=== PATIENT | female | born 1955 ===

== ENCOUNTER 2025-01-26 06:19 | Day surgery (SDC) | payer OTHER, SELFPAY ==
[2025-01-26] VITALS (10 sets, daily range): BP systolic 113–158; BP diastolic 49–62; BMI 45.2
[2025-01-26 12:56] LABS: Glucose - Point of Care 140 mg/dl (70-99)
[2025-01-26] MEDS: TYLENOL 1000 MG PO (13:02)
[2025-01-26] MEDS: CELEBREX 200 MG PO (13:02)
[2025-01-26] MEDS: NORMOSOL-R/PLASMALYTE-A 1000 IV ×2 (13:03→20:57)
[2025-01-26 15:08] LABS: Glucose - Point of Care 115 mg/dl (70-99)
[2025-01-26 18:54] LABS: Glucose - Point of Care 117 mg/dl (70-99)
--- NOTE | 2025-01-26 19:46 | W.PN.SURGUPD ---
Surgical Update
Surgical Update
69 yo F s/p R charcot midfoot dislocation repair with external fixator application
-WB for transfer to E
-Dressings to remain C/D/I, please reinforce as needed
-Vancomycin for antibiotics for 24 hours
-Anticipate DC to SNF
-PT/OT
--- NOTE | 2025-01-26 20:21 | HPS.HSE ---
Family Physician
-
Family Physician: GRETA Plascencia
Chief Complaint
-
Sharp, foot right ankle with contracture right ankle
History of Present Illness
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
asked by podiatry to evaluate the patient for her ongoing medical needs. Patient is awake alert oriented. She denies any pain in her right lower extremity however she did receive a nerve block. She was educated on pain control when the nerve
block starts to wear off. She denies headache, chest pain, palpitations, cough, shortness of breath, abdominal pain, nausea, vomiting, diarrhea, urinary symptoms. She does live alone has a powder room on the first floor and can sleep there. I did
make her aware we were consulting case management for SNF rehab placement that she was amicable to. She states her daughter Muna is her emergency contact however she lives in [place] so she listed her friend Alvina
She has a past medical history DM2, HTN, HLD, Charcot foot with neuropathy of the right, contracture right ankle, dislocation midtarsal joint of the right foot status post repair today 01/26/2025 class III obesity
Medical History
Past Medical History
Past Medical History: Reports Other
Additional Past Medical History:
DM2
HTN
HLD
Charcot foot with neuropathy of the right
contracture right ankle
dislocation midtarsal joint of the right foot status post repair today 01/26/2025
class III obesity
Past Surgical History: Reports Other
Additional Past Surgical History:
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
Charcot foot with neuropathy of the right, contracture right ankle, dislocation midtarsal joint of the right foot status post repair today 01/26/2025
Social History
Tobacco: Non-smoker
Alcohol: None
Drug: None
Family History
Family History: Diabetes and Hypertension
Allergies / Home Medications
Allergies reflects when Allergies were last updated in [facility].
Home Medications with original date entered in [facility]
Allergy/Medication List:
Allergies
Allergy/AdvReac Type Severity Reaction Status Date / Time
levofloxacin [From Levaquin] Allergy Unknown Verified 01/26/25 12:49
Penicillins Allergy Hives Verified 01/26/25 12:49
Home Medications
aflibercept 2 mg/0.05 mL intravitreal syringe (Eylea) 2 mg intravitreal DIRECTED 01/20/25
amlodipine 10 mg tablet 10 mg PO HS 01/20/25
aspirin 81 mg tablet,delayed release 81 mg PO DAILY 01/20/25
biotin 5,000 mcg chewable tablet 5,000 mcg PO DAILY 01/20/25
calcium 600 mg (as carbonate)-vit D3 20 mcg (800 unit) chewable tablet (Caltrate plus D) 1 tab PO DAILY 01/20/25
cholecalciferol (vitamin D3) 50 mcg (2,000 unit) capsule (Vitamin D3) 50 mcg PO DAILY 01/20/25
cyanocobalamin (vitamin B-12) 1,000 mcg tablet 1,000 mcg PO DAILY 01/20/25
cyanocobalamin (vitamin B-12) 3,000 mcg capsule 3,000 mcg PO DAILY 01/20/25
hydrochlorothiazide 25 mg tablet 25 mg PO DAILY 01/20/25
insulin aspart U-100 100 unit/mL (3 mL) subcutaneous pen (Novolog FlexPen U-100 Insulin aspart) 12 - 16 unit SC AC 01/20/25
insulin degludec 200 unit/mL (3 mL) subcutaneous pen (Tresiba FlexTouch U-200 insulin) 40 unit SC HS 01/20/25
latanoprost 0.005 % eye drops 1 drp ophthalmic (eye) HS 01/20/25
losartan 100 mg-hydrochlorothiazide 12.5 mg tablet 1 tab PO DAILY 01/20/25
metoprolol succinate 25 mg tablet,extended release 24 hr 25 mg PO HS 01/20/25
multivitamin with minerals-folic acid 0.4 mg tablet (One-A-Day Women's 50 Plus) 1 tab PO DAILY 01/20/25
simvastatin 10 mg tablet 10 mg PO HS 01/20/25
solifenacin 5 mg tablet 5 mg PO HS 01/20/25
sour wilson extract 1,000 mg capsule (Tart Wilson Extract) 2,000 mg PO DAILY 01/20/25
tirzepatide 7.5 mg/0.5 mL subcutaneous pen injector (Mounjaro) 7.5 mg SC QWEEK 01/20/25
Review of Systems
-
History Source: Patient and Other (Nurse at bedside)
A 12 point ROS was completed and negative except as noted: Yes
Constitutional: Denies Fever or Chills
EENT: Denies Sore Throat or Runny Nose
Respiratory: Denies Cough or Trouble Breathing
Cardiac: Denies Chest Pain, Diaphoresis or Palpitations
Abdomen/GI: Denies Abdominal Pain, Nausea, Vomiting, Diarrhea, Constipated or Bloody Stools
: Denies Dysuria or Frequency
Musculoskeletal: Reports Other (External fixator applied to right lower extremity skin is pink and warm patient had nerve block has no current sensation); Denies Joint Pain
Skin: Denies Itching or Rash
Neurological: Denies Dizzy or Headache
Endocrine: Reports No Symptoms
Hematologic/Lymphatic: Reports No Symptoms
Psych: Reports Calm
Physical Exam
Vital Signs
Vital Signs
Temp Pulse Resp BP Pulse Ox
97.1 F 64 11 113/49 96
01/26/25 19:46 01/26/25 20:15 01/26/25 20:15 01/26/25 20:15 01/26/25 20:15
Physical Exam
General: Comfortable, Conversant and Morbidly Obese; No Pain or Fever
HEENT: NormoCephalic, Anicteric, Mulberry Conjunctivae, No Ptosis and Other (Dry oral mucosa)
Respiratory: Clear; No Wheezes, Rales or Rhonchi
Cardiac: S1/S2 and Regular Rhythm; No Murmur, Rub, Gallop or Peripheral Edema
Breast: Deferred by me
GI: Soft, Non Tender, Non Distended, Normal Bowel Sounds and No Hepatosplenomegaly
Rectal: Deferred by Provider
Genito-urinary: Deferred by me
Musculoskeletal: No Clubbing, No Cyanosis, No Edema and Other (External fixator applied to right lower extremity skin is pink and warm patient had nerve block has no current sensation)
Skin: Warm and Dry; No Rash or Jaundice
Neuro: AO x 3, Nonfocal/grossly intact, Cranial Nerves Intact, No Sensory Deficits and Other (External fixator applied to right lower extremity skin is pink and warm patient had nerve block has no current sensation); No Slurred Speech, Facial Droop,
Tremors or Sedated
Psych: Calm
Impression/Plan
-
Impression/plan:
Observation MedSurg postop
#Charcot foot with neuropathy of the right, contracture right ankle, dislocation midtarsal joint of the right foot status post repair today 01/26/2025
#Status post right Charcot midfoot dislocation repair with external fixator application
- Weight-bear for transfer to E
- Dressings to remain clean dry and intact
-IV vancomycin x 24 hours
-Case management for SNF rehab placement
-Consult PT/OT
- Check BMP at 2300, CBC BMP in a.m.
#DM 2
Accu-Cheks with SSI recent HgbA1c 6.7 on 01/20/2025 at [facility] labs
- Patient on Tresiba 40 units SQ at bedtime
-NovoLog 12 to 16 units with meals
-Mounjaro 7.5 mg subcu weekly
#HTN
-All BP meds with hold parameters
-Continue metoprolol succinate 25 mg at bedtime
-Continue losartan
-Continue amlodipine 10 mg at bedtime
-Hold HCTZ
#HLD
-Continue simvastatin 10 mg at bedtime
#Overactive bladder
-Continue solifenacin 5 mg at bedtime
#B12 deficiency
Continue vitamin B12 supplement
#Vitamin D deficiency
-Continue vitamin D supplementation
#Continue latanoprost 1 drop eyes at bedtime
#Class III 3 obesity�BMI 45.2
[2025-01-26] MEDS: DILAUDID 0.5 MG IV (20:47)
--- NOTE | 2025-01-26 20:57 | W.PN.UPDATE ---
Update Note
Progress Note Update
Patient seen and congestion with GRETA. I agree to physician physical. I concur with assessment and plan listed otherwise.
Briefly, this is a six 9-year-old female with past medical history significant for insulin-dependent diabetes, hypertension, history of neuropathic Charcot foot in the right lower extremity status post scheduled external fixator repair today who we
have been requested by podiatry to admit patient for ongoing medical needs.
No acute intraoperative complications. Postoperatively she is well-appearing and in no acute distress. She denies any pain in the right lower extremity. Review of system was thoroughly unremarkable.
On evaluation no acute findings on physical exam. I agree with the [employer]GE[employer] note.
Blood pressure was 170/56 with pulse of 65 and temp of 97.1, satting 98% on room air.
Assessment and plan
1. Right Charcot foot neuropathy�postop day 0, status post scheduled external fixator repair
- admit to med/surg
- pain control
- advance diet a tolerated
- vancomycin x 24 hours
- WB for transfers
- PT
- CM
- appreciate podiatry
2. DM II - labs pending
- continue home insulin regimen with lantus 40 hs starting tomorrow
- insulin 12 tidac
- moderate dose sliding scale
- continue statin
3. HTN
- continue losartan/hctz and amlodipine
DVT PPX - lovenox sq
Code status - Full Code
[2025-01-26 21:32] LABS: ALT (SGPT) 13 U/L (0-35); AST (SGOT) 18 U/L (14-36); Albumin 3.9 g/dl (3.5-5.0); Alkaline Phosphatase 95 U/L (38-126); Blood Urea Nitrogen 28 mg/dl (7-17); Calcium 8.8 mg/dl (8.4-10.2); Carbon Dioxide 24 mmol/L (22-30); Chloride 103 mmol/L (98-107); Estimated Creatinine Clearance 91 ml/min; Glucose 180 mg/dl (70-99); Potassium 3.6 mmol/L (3.5-5.1); Sodium 138 mmol/L (135-145); Total Bilirubin 0.6 mg/dl (0.2-1.3); Total Protein 6.6 g/dl (6.3-8.2); eGFR > 60.00
[2025-01-26 22:01] LABS: Glucose - Point of Care 179 mg/dl (70-99)
--- NOTE | 2025-01-26 22:05 | PHA.VAN.IN ---
Assessment
- Assessment
Renal Function: Unknown baseline
Concomitant Antimicrobials: NONE
- Previous Dosing Experience
Previous Regimen: NONE
AUC Dosing Plan
- Dosing Variables
Dosing Weight (kg): 138.8
Dosing CrCl (ml/min): 91
Vd coefficient (L/kg): 0.5
- Empiric Dosing
Initial / Loading Dose: 2GM
Maintenance Regimen: 1500MG IV Q12H
Estimated AUC (mcg*h/mL): 573
Estimated Peak (mcg*h/mL): 35
Estimated Trough (mcg/ml): 15.1
Estimated Half Life (H): 8.7
Pharmacokinetics Vancomycin I
- -
Patient Age: 69
Patient Sex: Female
Vancomycin Day #: 1
Indication: Prophylaxis (Surg,Hiv,...) (CHARCOT FOOT)
Requesting Provider: FREDA
Pertinent Antimicrobial Allergies:
Allergies
Penicillins Allergy (Verified 01/26/25 12:49)
Hives
levofloxacin [From Levaquin] Allergy (Verified 01/26/25 12:49)
Unknown
Height / Weight:
Height 5 ft 9 in
Actual Weight 138.799 kg
Pertinent Past Medical History: DM
- Vital Signs / Lab Results
Temp Pulse Resp BP Pulse Ox
97.2 F 64 11 113/49 94
01/26/25 21:00 01/26/25 21:00 01/26/25 21:00 01/26/25 21:00 01/26/25 21:00
Lab Results - Chemistry
01/26/25
21:02
BUN 28 H
Creatinine 0.9
Estimated Creat Clear 91
Albumin 3.9
[2025-01-26] MEDS: LANTUS 0.4 UNITS SC (22:09)
[2025-01-26] MEDS: VANCOCIN 540 MG IV (22:10)
[2025-01-26] MEDS: LIPITOR 10 MG PO (22:10)
[2025-01-26] MEDS: TOPROL XL 25 MG PO (22:10)
[2025-01-26] MEDS: VESICARE 5 MG PO (23:14)
[2025-01-26] MEDS: XALATAN OPHTHALMIC SOLUTION 1 DROP BOTH EYES (23:15)
[2025-01-27] VITALS (9 sets, daily range): BP systolic 105–147; BP diastolic 44–63; PULSE 70–72; O2SAT 97
[2025-01-27] MEDS: VANCOCIN 530 MG IV (06:09)
[2025-01-27 07:32] LABS: % Basophils 0.1 % (0-2); % Immature Granulocytes 0.5 % (0-0.5); % Lymphocytes 5.8 % (20.5-51.1); % Neutrophils 88.6 % (42.2-75.2); Absolute Immature Granulocytes 0.1 10^3/uL (0-0.05); Absolute Lymphocytes 0.7 10^3/uL (1.2-3.4); Absolute Monocytes 0.6 10^3/uL (0.1-0.6); Hematocrit 35.5 % (37.0-47.0); Mean Corp Hgb Conc. 33.8 g/dL (33.0-37.0); Mean Corpuscular Hgb 29.6 pg (27.0-31.0); Mean Corpuscular Volume 87.4 fL (81.0-99.0); Mean Platelet Volume 12.4 fL (7.4-10.4); Nucleated Red Blood Cells % 0 %; Platelet Count 155 10^3/uL (130-400); Red Blood Cell Count 4.06 10^6/uL (4.20-5.40); Red Cell Dist. Width 13.3 % (11.5-14.5); White Blood Cell Count 11.3 10^3/uL (4.8-10.8)
--- NOTE | 2025-01-27 07:32 | W.PN.SURGUPD ---
Surgical Update
Surgical Update
69 yo F s/p R charcot midfoot dislocation repair with external fixator application 01/26/2025
-Patient seen and evaluated at bedside. Dressings to remain C/D/I
-WB for transfer to [facility]
-Vancomycin for antibiotics for 24 hours
-Anticipate DC to SNF pending PT/OT evaluation
-At SNF, dressings can be changed 1x weekly per following instructions: Please apply xeroform to pin sites, gauze, eliseo wrap, SUZIE bandage to E external fixator
-To follow up at [facility] in 2 weeks
[2025-01-27 08:03] LABS: ALT (SGPT) 12 U/L (0-35); AST (SGOT) 18 U/L (14-36); Albumin 3.3 g/dl (3.5-5.0); Alkaline Phosphatase 90 U/L (38-126); Blood Urea Nitrogen 29 mg/dl (7-17); Calcium 8.7 mg/dl (8.4-10.2); Carbon Dioxide 27 mmol/L (22-30); Chloride 103 mmol/L (98-107); Estimated Creatinine Clearance 91 ml/min; Glucose 220 mg/dl (70-99); Potassium 3.6 mmol/L (3.5-5.1); Sodium 140 mmol/L (135-145); Total Bilirubin 0.5 mg/dl (0.2-1.3); eGFR > 60.00
[2025-01-27 08:33] LABS: Glucose - Point of Care 223 mg/dl (70-99)
--- NOTE | 2025-01-27 08:55 | CM ---
Addendum entered by Gloria Sung RN 01/28/25 09:04:
[facility]
Report
[phone]
fax
[phone]
Addendum entered by Gloria Sung RN 01/28/25 08:48:
[facility]BC Authorization
[id number]
NRD 02/02
Addendum entered by Gloria Sung RN 01/27/25 15:47:
Patient is agreeable to [facility] for discharge 01/28. Pending authorization.
PLAN: [facility] Pending auth.
Addendum entered by Gloria Sung RN 01/27/25 15:26:
CM updated patient that [facility] does not have any beds.
Patient is now interested in [facility]. Awaiting bed availability.
Addendum entered by Gloria Sung RN 01/27/25 15:22:
[facility] has no beds available at this time.
Addendum entered by Gloria Sung RN 01/27/25 15:15:
Patient is declining [facility], and [facility]. Patient requesting referral to be sent to [facility] in [place].
Addendum entered by Gloria Sung RN 01/27/25 14:55:
[facility]
have accepted patient.
Patient is unsure if she wants these facilities and is currently researching them. She expressed continued interest in [facility]. CM contacted [facility] admission coordinator to confirm if bed is available.
Addendum entered by Gloria Sung RN 01/27/25 13:20:
CM sent referrals to
[facility].
Addendum entered by Gloria Sung RN 01/27/25 13:18:
[facility] was able to accept but patient declined.
[facility] does not have any beds
[facility] is not able to accept due to patient's body habitus.
[facility] cannot accept due to patient's body habitus.
Addendum entered by Gloria Sung RN 01/27/25 11:12:
Patient has declined [facility]. CM offered bed at [facility]. Patient would like it if [facility] was considered. CM called admission coordinator at [facility].
Original Note:
CM met with patent. Patient is agreeable to SNF. Referrals sent to [facility], [facility], [facility] and [facility]. Awaiting acceptance.
[2025-01-27] MEDS: ASPIR LOW (ENTERIC COATED) 81 MG PO ×2 (09:07→19:56)
[2025-01-27] MEDS: NOVOLOG FLEXPEN-MODERATE RESISTANCE 3 UNITS SC ×3 (09:07→18:19)
[2025-01-27] MEDS: THERAGRAN 1 TABLET PO (09:08)
[2025-01-27] MEDS: VITAMIN B-12 3000 MCG PO (09:08)
[2025-01-27] MEDS: VITAMIN B-12 1000 MCG PO (09:08)
[2025-01-27] MEDS: OSCAL 500 + D 500 MG PO (09:09)
[2025-01-27] MEDS: VITAMIN D3 (cholecalciferol) 50 MCG PO (09:09)
[2025-01-27] MEDS: TYLENOL 1000 MG PO (12:10)
[2025-01-27] MEDS: NOVOLOG FLEXPEN 7 UNITS SC (12:12)
[2025-01-27 12:13] LABS: Glucose - Point of Care 230 mg/dl (70-99)
--- NOTE | 2025-01-27 12:17 | W.PN.HOSP.TC ---
Today's Communication/Plan
-
Stable for discharge to rehab, discussed with case management.
Assessment / Plan
Assessment / Plan
69-year-old female with right foot Charcot disease and contractions of the right ankle with dislocation in the midtarsal joint of the right foot hide external fixator repair on 01/18/2025.
CVS: S1-S2 normal
Chest: CTA B/L
Abdomen: Soft, NT / Bowel sounds present
Extremities: right leg on ext fixator.
HEALTH CARE COORDINATOR: Non focal exam
# Charcot foot with neuropathy and right ankle contracture with dislocation of the midtarsal joint of the right foot status post repair on 01/26/[address]
Management per podiatry
Weight-bear for transfers right lower extremity
Dressings to remain intact
Vancomycin for 24 hours per podiatry
PT OT
Needs Rehab
# Diabetes-with neuropathy
Hemoglobin A1c-
On Tresiba 40 units at night and NovoLog 12-16 AC as outpatient.
Continue Lantus 40 units and NovoLog 7 AC plus sliding scale coverage. Adjust NovoLog AC as needed
# Hypertension-continue amlodipine, hydrochlorothiazide, losartan, metoprolol
# Hyperlipidemia-continue statin
# Obesity with a BMI of 45-on Mounjaro 7.5 mg/week
# Bladder dysfunction-continue solifenacin
# B12 deficiency-continue B12 replacement
# History of second digit amputation left foot, first digit amputation left foot.
# Vitamin D deficiency-continue replacement
# Glaucoma-continue eye drops
# DVT prophylaxis-ASA 81 mg BID
# Full code
D/W . Will do aspirin 81 mg twice daily as prophylaxis
D/W Case management.
Anticipated Discharge: Today
Subjective/Interval History
-
Date of Service: January 27, 2025
Objective Data
-
Labs:
Laboratory Results
01/27/25
06:26
WBC 11.3 H
Hgb 12.0
Hct 35.5 L
Plt Count 155
Sodium 140
Potassium 3.6
Chloride 103
Carbon Dioxide 27
BUN 29 H
Creatinine 0.9
Glucose 220 H
Calcium 8.7
Total Bilirubin 0.5
AST 18
ALT 12
Alkaline Phosphatase 90
Vital Signs:
Vital Signs
Temp Pulse Resp BP Pulse Ox
97.4 F 68 18 147/63 98
01/27/25 07:15 01/27/25 07:15 01/27/25 07:15 01/27/25 07:15 01/27/25 09:03
I&O
01/26/25 01/27/25 01/28/25
06:59 06:59 06:59
Intake Total 1470 / 1470
Output Total 800 / 800
Balance 670 / 670
[2025-01-27 15:03] LABS: Glycohemoglobin (HgbA1c) 6.2 % (4.0-5.6)
[2025-01-27 16:59] LABS: Glucose - Point of Care 225 mg/dl (70-99)
--- NOTE | 2025-01-27 17:46 | W.PN.UPDATE ---
Update Note
Progress Note Update
Losartan hydrochlorothiazide added
Increase NovoLog to 10 AC
[2025-01-27] MEDS: COZAAR 100 MG PO (18:17)
[2025-01-27] MEDS: ORETIC 12.5 MG PO (18:17)
[2025-01-27] MEDS: NORMOSOL-R/PLASMALYTE-A IV (18:21)
[2025-01-27] MEDS: NOVOLOG FLEXPEN SC (18:21)
[2025-01-27] MEDS: NOVOLOG FLEXPEN 10 UNITS SC (18:42)
[2025-01-27] MEDS: ROXICODONE 5 MG PO (19:56)
[2025-01-27] MEDS: LANTUS 0.4 UNITS SC (21:38)
[2025-01-27] MEDS: LIPITOR 10 MG PO (21:38)
[2025-01-27] MEDS: TOPROL XL 25 MG PO (21:39)
[2025-01-27] MEDS: XALATAN OPHTHALMIC SOLUTION 1 DROP BOTH EYES (21:40)
[2025-01-27] MEDS: VESICARE 5 MG PO (21:40)
[2025-01-27 21:56] LABS: Glucose - Point of Care 220 mg/dl (70-99)
[2025-01-28] MEDS: ROXICODONE 5 MG PO ×2 (02:53→09:12)
[2025-01-28 06:50] LABS: Glucose - Point of Care 112 mg/dl (70-99)
[2025-01-28 07:10] VITALS: BP 121/41
[2025-01-28] MEDS: COZAAR 100 MG PO (08:52)
[2025-01-28] MEDS: VITAMIN B-12 1000 MCG PO (08:53)
[2025-01-28] MEDS: VITAMIN B-12 3000 MCG PO (08:53)
[2025-01-28] MEDS: NOVOLOG FLEXPEN-MODERATE RESISTANCE SC ×2 (08:54→11:34)
[2025-01-28] MEDS: ASPIR LOW (ENTERIC COATED) 81 MG PO (08:54)
[2025-01-28] MEDS: THERAGRAN 1 TABLET PO (08:54)
[2025-01-28] MEDS: ORETIC 25 MG PO (08:54)
[2025-01-28] MEDS: ORETIC 12.5 MG PO (08:54)
[2025-01-28] MEDS: VITAMIN D3 (cholecalciferol) 50 MCG PO (08:54)
[2025-01-28] MEDS: OSCAL 500 + D 500 MG PO (08:54)
--- NOTE | 2025-01-28 08:58 | W.PN.HOSP.TC ---
Today's Communication/Plan
-
OK for d/c to SNF
Assessment / Plan
Assessment / Plan
69-year-old female with right foot Charcot disease and contractions of the right ankle with dislocation in the midtarsal joint of the right foot hide external fixator repair on 01/18/2025.
# Charcot foot with neuropathy and right ankle contracture with dislocation of the midtarsal joint of the right foot status post repair on 01/26/2025 and external fixator placement.
Management per podiatry
Weight-bear for transfers right lower extremity
Dressings to remain intact
Vancomycin for 24 hours per podiatry
PT OT
OK for SNF
# Diabetes-with neuropathy
Hemoglobin A1c-
On Tresiba 40 units at night and NovoLog 12-16 AC as outpatient.
Continue Lantus 40 units and NovoLog 7 AC plus sliding scale coverage. Adjust NovoLog AC as needed
# Essential Hypertension-continue amlodipine, hydrochlorothiazide, losartan, metoprolol
# Hyperlipidemia-continue statin
# Obesity with a BMI of 45-on Mounjaro 7.5 mg/week
# Bladder dysfunction-continue solifenacin
# B12 deficiency-continue B12 replacement
# History of second digit amputation left foot, first digit amputation left foot.
# Vitamin D deficiency-continue replacement
# Glaucoma-continue eye drops
# DVT prophylaxis-ASA 81 mg BID
# Full code
Dr. Quezada D/W Will do aspirin 81 mg twice daily as prophylaxis
D/W Case management.
Anticipated Discharge: Today
Subjective/Interval History
-
Date of Service: January 28, 2025
pt without c/o
occasional pain
Objective Data
-
Vital Signs:
max temp for 24 hours
01/27/25
23:05
Temp 99.0 F
Vital Signs
Temp Pulse Resp BP Pulse Ox
99.0 F 69 16 126/57 94
01/27/25 23:05 01/27/25 23:05 01/27/25 23:05 01/27/25 23:05 01/27/25 23:05
I&O
01/27/25 01/28/25 01/29/25
06:59 06:59 06:59
Intake Total 1470 / 1470 1280 / 1280
Output Total 800 / 800
Balance 670 / 670 1280 / 1280
Review of Systems
-
All other systems: Reviewed and negative
Physical Exam
-
General: Well Developed, Well Nourished and No Apparent Distress
HEENT: Normocephalic and Atraumatic
Respiratory: Clear to Auscultation; Negative Wheezes or Rhonchi
Cardiac: Regular Rhythm and S1/S2; Negative Murmur
GI: Soft, Nontender, Nondistended and Normal Bowel Sounds
Musculoskeletal: No Clubbing, No Cyanosis, No Edema and Other (right heel post op)
Neuro: Awake
[2025-01-28] MEDS: NOVOLOG FLEXPEN 10 UNITS SC ×2 (09:00→11:35)
[2025-01-28 11:31] LABS: Glucose - Point of Care 120 mg/dl (70-99)
[2025-01-28 12:55] VITALS: BP 160/51
[2025-01-28 13:00] VITALS: BP 160/51
--- NOTE | 2025-01-28 13:53 | W.DCSUMMARY ---
Discharge Summary
Discharge Data
Date of Admission: 01/26/25
Date of Discharge: 01/28/25
-
Pending Results: No
Hospital Course
Primary care physician : Sandrine Candelaria
Principal Discharge diagnosis : Charcot foot with neuropathy and right ankle contracture with dislocation of the midtarsal joint of the right foot status post repair with external fixator
Chronic Discharge diagnosis : type 2 diabetes mellitus with neuropathy, essential hypertension, hyperlipidemia, obesity, bladder dysfunction, B12 deficiency, vitamin D deficiency, glaucoma, history of digit amputation of the left foot
Hospital Course : Patient was a 69-year-old female with a history of Charcot right foot neuropathy with contractures and right ankle dislocation who is status post external fixator repair on January 26, 2025. Patient lives alone but podiatry really
wanted rehab placement. Patient was unable to go home and is amenable to care home facility.
Problem #1: Charcot foot with neuropathy and right ankle contracture with dislocation of the midtarsal joint of the right foot status post repair with external fixator. Patient is full weightbearing for transfers to the right lower extremity as
tolerated. She was seen in consultation by podiatry as mentioned. She has been cleared for discharge to care home facility at this time. We are waiting for authorization. Follow-up with podiatry as an outpatient. Aspirin 81 mg twice daily
will be DVT prophylaxis as per podiatry.
Problem #2: All other medical issues. These include type 2 diabetes mellitus with neuropathy, essential hypertension, hyperlipidemia, obesity, bladder dysfunction, B12 deficiency, vitamin D deficiency, glaucoma, history of digit amputation of the
left foot. These medical issues were stable during her hospitalization. Medications were continued as able.
Patient is stable for discharge to skilled rehab at this time. If there are any questions regarding this dictation or her hospital stay, please not hesitate to call. Our office number is [phone].
Time for discharge 20 minutes
Discharge Plan
-
Patient Disposition: Fpc/SNF
Discharge Diagnosis/Procedures: R charcot midfoot dislocation repair with external fixator application 01/26/2025
Diabetes
Hypertension
Hyperlipidemia
Glaucoma
Diet: 2 Gram Sodium and Diabetic, Carb Controlled
Activity: Other activity
Additional Activity: WB for transfer to [facility]
Driving Restrictions: No driving
Bathing Restrictions: as per podiatry
Other Services: PT and OT
Activity Restrictions/Additional Instructions:
At [facility], dressings can be changed 1x weekly per following instructions: Please apply xeroform to pin sites, gauze, eliseo wrap, SUZIE bandage to E external fixator
Referrals:
Sandrine Candelaria CRNP [Family Provider] - in less than 1 week
Don Packer DPM [Active] - in two weeks
Additional Discharge Medication Instructions:
Patient should bring her own Tresiba and Mounjaro to [facility].
Prescriptions:
New
aspirin 81 mg Tablet,Delayed Release (Dr/Ec)
81 mg PO BID Qty: 0 0RF
acetaminophen [Tylenol Extra Strength] 500 mg Tablet
1,000 mg PO Q6HPRN PRN (Reason: mild pain) Qty: 0 0RF
oxycodone 5 mg Tablet
5 mg PO Q4HPRN PRN (Reason: severe pain) Qty: 10 0RF
polyethylene glycol 3350 17 gram Powder In Packet
17 g PO DAILYPRN PRN (Reason: constipation) Qty: 0 0RF
bisacodyl 10 mg Suppository
10 mg NV [id number] PRN (Reason: constipation) Qty: 0 0RF
insulin aspart U-100 100 unit/mL (3 mL) Insulin Pen
10 unit SC AC Qty: 0 0RF
Continued
latanoprost 0.005 % Drops
1 drp OPHTHALMIC (EYE) HS
Rx Instructions:
BOTH EYES
simvastatin 10 mg Tablet
10 mg PO HS
cyanocobalamin (vitamin B-12) 1,000 mcg Tablet
1,000 mcg PO DAILY
amlodipine 10 mg Tablet
10 mg PO HS
metoprolol succinate 25 mg Tablet Extended Release 24 Hr
25 mg PO HS
solifenacin 5 mg Tablet
5 mg PO HS
losartan-hydrochlorothiazide 100-12.5 mg Tablet
1 tab PO DAILY
multivit with min-folic acid [One-A-Day Women's 50 Plus] 0.4 mg Tablet
1 tab PO DAILY
cholecalciferol (vitamin D3) [Vitamin D3] 50 mcg (2,000 unit) Capsule
50 mcg PO DAILY
Caltrate 600 plus D 600 mg-20 mcg (800 unit) Tablet,Chewable
1 tab PO DAILY
insulin degludec [Tresiba FlexTouch U-200] 200 unit/mL (3 mL) Insulin Pen
40 unit SC HS
cyanocobalamin (vitamin B-12) 3,000 mcg Capsule
3,000 mcg PO DAILY
Mounjaro 7.5 mg/0.5 mL Pen Injector
7.5 mg SC QWEEK
Rx Instructions:
Q SUNDAY
biotin 5,000 mcg Tablet,Chewable
5,000 mcg PO DAILY
Held
Eylea 2 mg/0.05 mL Syringe
2 mg INTRAVITREAL DIRECTED
Hold Instructions: do NOT take at [facility]
Discontinued
aspirin [Aspir-81] 81 mg Tablet,Delayed Release (Dr/Ec)
81 mg PO DAILY
hydrochlorothiazide 25 mg Tablet
25 mg PO DAILY
insulin aspart U-100 [Novolog FlexPen U-100 Insulin] 100 unit/mL (3 mL) Insulin Pen
12 - 16 unit SC AC
Rx Instructions:
WITH MEALS
Tart Wilson Extract 1,000 mg Capsule
2,000 mg PO DAILY
Discharge Orders:
Discharge Patient (As Directed); Ordered 01/28/25
Ordered By: Chanda Castillo
Discharge Date and Time
Print Language: SAMI
== END 2025-01-28 14:06 ==
LOC: SDS 06:19
PROVIDERS: Clinical Nurse Specialist Family Health; Student in an Organized Health Care Education/Training Program; ATTENDING PHYSICIAN Internal Medicine; FAMILY PHYSICIAN Nurse Practitioner
DX: S93.314A Dislocation of tarsal joint of right foot, initial encounter (principal); M14.671 Charcot's joint, right ankle and foot; M24.571 Contracture, right ankle; E66.813 Obesity, class 3; Z68.42 Body mass index [BMI] 45.0-49.9, adult; E55.9 Vitamin D deficiency, unspecified; E53.8 Deficiency of other specified B group vitamins; E11.9 Type 2 diabetes mellitus without complications; N32.81 Overactive bladder; E78.5 Hyperlipidemia, unspecified; I10 Essential (primary) hypertension; X50.3XXA Overexertion from repetitive movements, initial encounter
CPT/HCPCS: 20692; 28615; C1713; 73630; 76000; 80053; 82962; 83036; 85025; 97163; 97167

== ENCOUNTER → 2025-01-30 11:14 | Outpatient (REF) | payer BC, OTHER, SELFPAY ==
[2025-01-30 12:11] LABS: % Basophils 0.5 % (0-2); % Eosinophils 2.5 % (0-6); % Immature Granulocytes 0.3 % (0-0.5); % Lymphocytes 19.1 % (20.5-51.1); % Monocytes 7.5 % (1.7-9.3); % Neutrophils 70.1 % (42.2-75.2); Absolute Eosinophils 0.2 10^3/uL (0-0.7); Absolute Lymphocytes 1.4 10^3/uL (1.2-3.4); Absolute Monocytes 0.6 10^3/uL (0.1-0.6); Absolute Neutrophils 5.2 10^3/uL (1.4-6.5); Hematocrit 32.8 % (37.0-47.0); Hemoglobin 10.9 g/dL (12.0-16.0); Mean Corp Hgb Conc. 33.2 g/dL (33.0-37.0); Mean Corpuscular Hgb 29.3 pg (27.0-31.0); Mean Corpuscular Volume 88.2 fL (81.0-99.0); Mean Platelet Volume 12.5 fL (7.4-10.4); Nucleated Red Blood Cells % 0 %; Platelet Count 177 10^3/uL (130-400); Red Blood Cell Count 3.72 10^6/uL (4.20-5.40); Red Cell Dist. Width 13.7 % (11.5-14.5); White Blood Cell Count 7.5 10^3/uL (4.8-10.8)
[2025-01-30 12:54] LABS: Blood Urea Nitrogen 29 mg/dl (7-17); Calcium 8.7 mg/dl (8.4-10.2); Carbon Dioxide 28 mmol/L (22-30); Chloride 100 mmol/L (98-107); Glucose 103 mg/dl (70-99); Potassium 3.4 mmol/L (3.5-5.1); Sodium 139 mmol/L (135-145); eGFR > 60.00
== END ==
LOC: OLABP 11:14
PROVIDERS: ATTENDING PHYSICIAN Family Medicine
DX: E11.40 Type 2 diabetes mellitus with diabetic neuropathy, unspecified (principal); M14.671 Charcot's joint, right ankle and foot; I10 Essential (primary) hypertension; G62.9 Polyneuropathy, unspecified; E78.5 Hyperlipidemia, unspecified; E66.01 Morbid (severe) obesity due to excess calories; E53.8 Deficiency of other specified B group vitamins
CPT/HCPCS: 36415; 80048; 85025

== ENCOUNTER → 2025-02-02 12:12 | Outpatient (REF) | payer BC, OTHER, SELFPAY ==
[2025-02-02 13:21] LABS: Blood Urea Nitrogen 23 mg/dl (7-17); Carbon Dioxide 36 mmol/L (22-30); Chloride 97 mmol/L (98-107); Glucose 157 mg/dl (70-99); Potassium 3.5 mmol/L (3.5-5.1); Sodium 141 mmol/L (135-145); eGFR > 60.00
[2025-02-02 13:36] LABS: % Basophils 0.4 % (0-2); % Eosinophils 0.7 % (0-6); % Immature Granulocytes 0.4 % (0-0.5); % Lymphocytes 15.4 % (20.5-51.1); % Monocytes 6.8 % (1.7-9.3); % Neutrophils 76.3 % (42.2-75.2); Absolute Eosinophils 0.1 10^3/uL (0-0.7); Absolute Lymphocytes 1.2 10^3/uL (1.2-3.4); Absolute Monocytes 0.6 10^3/uL (0.1-0.6); Absolute Neutrophils 6.1 10^3/uL (1.4-6.5); Hematocrit 37.9 % (37.0-47.0); Hemoglobin 12.3 g/dL (12.0-16.0); Mean Corp Hgb Conc. 32.5 g/dL (33.0-37.0); Mean Corpuscular Hgb 28.8 pg (27.0-31.0); Mean Corpuscular Volume 88.8 fL (81.0-99.0); Mean Platelet Volume 11.4 fL (7.4-10.4); Nucleated Red Blood Cells % 0 %; Platelet Count 221 10^3/uL (130-400); Red Blood Cell Count 4.27 10^6/uL (4.20-5.40); Red Cell Dist. Width 13.3 % (11.5-14.5)
== END ==
LOC: OLABP 12:12
PROVIDERS: ATTENDING PHYSICIAN Family Medicine
DX: E11.40 Type 2 diabetes mellitus with diabetic neuropathy, unspecified (principal); M14.671 Charcot's joint, right ankle and foot; I10 Essential (primary) hypertension; G62.9 Polyneuropathy, unspecified; E78.5 Hyperlipidemia, unspecified; E66.01 Morbid (severe) obesity due to excess calories; E53.8 Deficiency of other specified B group vitamins
CPT/HCPCS: 36415; 80048; 85025

== ENCOUNTER → 2025-02-06 12:50 | Outpatient (REF) | payer BC, OTHER, SELFPAY ==
[2025-02-06 16:01] LABS: Blood Urea Nitrogen 25 mg/dl (7-17); Calcium 8.9 mg/dl (8.4-10.2); Carbon Dioxide 28 mmol/L (22-30); Chloride 97 mmol/L (98-107); Glucose 107 mg/dl (70-99); Potassium 3.7 mmol/L (3.5-5.1); Sodium 136 mmol/L (135-145); eGFR > 60.00
== END ==
LOC: OLABP 12:50
PROVIDERS: ATTENDING PHYSICIAN Family Medicine
DX: E11.40 Type 2 diabetes mellitus with diabetic neuropathy, unspecified (principal); M14.671 Charcot's joint, right ankle and foot; I10 Essential (primary) hypertension; G62.9 Polyneuropathy, unspecified
CPT/HCPCS: 36415; 80048

== ENCOUNTER 2025-03-09 12:08 | Inpatient (IN) | payer OTHER, SELFPAY ==
--- NOTE | 2025-03-05 15:02 | CM ---
MIGUEL received call from TENISHA RN noting that patient is from [facility] and there is a SDS procedure planed for 03/09. As per TENISHA RN, patient has appealed her discharged with was planned for 03/06. MIGUEL spoke with Lisseth at [facility]. Lisseth referred patient to
Mg, director of strategic communications at [facility] to discuss patient's discharge planning
MILO Holliday
[phone]
--- NOTE | 2025-03-05 15:22 | PTCARENOTE ---
Pt lives independently @ home but is currently in [facility] post 01/26 procedure. Patient stated she was informed she would be 'tentatively dc'd home tomorrow as her insurance was only approved until today'. Spoke with Hammad Box RN Unit
Supervisor [employer] @ [facility]- she stated patient 'would stay the weekend as it was deemed she was not safe to go home alone'. Verified with Hammad patient would be staying @ [facility] and transported by their facility for Friday 03/09 scheduled surgery. Staff
would not verify patient would be returning postop. Case Management notified.
--- NOTE | 2025-03-05 15:36 | PTCARENOTE ---
Matilde at 's office was notified that patient has been instructed to continue taking her Tresiba and then reduce the dose by 20% the evening before surgery. These instructions have been confirmed by (anesthesia).
--- NOTE | 2025-03-06 08:09 | CM ---
Addendum entered by Gloria Sung RN 03/06/25 15:10:
MIGUEL spoke with Lisseth at [facility]. Lisseth is pending acceptance decision as per [facility] Administration. CM will follow up on 03/09
Addendum entered by Gloria Sung RN 03/06/25 13:58:
CM was contacted by patient asking about OR time. CM advised that the OR will call patient with OR time later this evening.
Patient had concerns about discharge planning. Patient would like to continue with SNF, but understands that insurance would have to approve it and [facility] would have to accept back. Patient is going to remove all her belongings the day of surgery
as she does not have the funds to hold her bed.
Original Note:
CM received message from MILO Holliday at [facility]. Mg stated that patient has appealed her discharge and should be staying at [facility] through the weekend. CM left message to discuss further.
CM spoke with patient. Patient stated that she has filed a several appeals to be able to stay at [facility] pending the repair of her pin. Patient stated that an aid at the facility 'pulled' on the external fixator and dislodged the pin. Patient did
stated that Dr. Packer plans to admit her overnight.
MIGULE updated Janeen Lafleur. CM requested of Dr. Packer to confirm that patient is SIMONA.
[2025-03-09] VITALS (16 sets, daily range): BP systolic 124–155; BP diastolic 43–71; BMI 44.0
[2025-03-09 07:31] LABS: Glucose - Point of Care 170 mg/dl (70-99)
[2025-03-09] MEDS: TYLENOL 1000 MG PO ×2 (07:47→21:18)
[2025-03-09] MEDS: CELEBREX 200 MG PO (07:47)
[2025-03-09] MEDS: NORMOSOL-R/PLASMALYTE-A 1000 IV (07:48)
--- NOTE | 2025-03-09 10:39 | W.PN.SURGUPD ---
Surgical Update
Surgical Update
69 yo F s/p RLE external fixator pin exchange and adjustment
-RLE dressings to remain C/D/I
-NWB to RLE
-Continue bactrim
-Anticipate need for DC to SNF
-PT/OT
[2025-03-09 10:47] LABS: Glucose - Point of Care 157 mg/dl (70-99)
--- NOTE | 2025-03-09 11:05 | HPS.HSE ---
Family Physician
-
Family Physician: NOT KNOW UNKNOWN - PT DOES
Chief Complaint
-
Postop management of diabetes and pain control
History of Present Illness
This is 69 years old female who was brought in for right foot surgery by Dr. Esther beaulieu. I am seeing the patient in PACU, currently does not have chest pain or shortness of breath or abdominal pain. She is still under pain control from surgery and
does not have significant discomfort. Recommendation from podiatry to maintain nonweightbearing status and subcu heparin for DVT prophylaxis. Patient has history of diabetes. She is on
Long and short acting insulin with Mounjaro. She denies missing her insulin doses. She does have history of obesity with elevated BMI around 44. Blood work is ordered with the Accu-Chek in PACU.
Medical History
Past Medical History
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
Past Surgical History: Reports Other (Right lower extremity external fixator pin exchange and adjustment on March 09, 2025.)
Social History
Tobacco: Non-smoker
Alcohol: None
Drug: None
Family History
Family History: Diabetes and Hypertension
Allergies / Home Medications
Allergies reflects when Allergies were last updated in [facility].
Home Medications with original date entered in [facility]
Allergy/Medication List:
Allergies
Allergy/AdvReac Type Severity Reaction Status Date / Time
levofloxacin (From Levaquin) Allergy Per Verified 03/09/25 07:11
Facility
Penicillins Allergy Hives/Per Verified 03/09/25 07:11
Facility
Home Medications
amlodipine 10 mg tablet 10 mg PO HS 01/20/25
biotin 5,000 mcg chewable tablet 5,000 mcg PO DAILY 01/20/25
calcium 600 mg (as carbonate)-vit D3 20 mcg (800 unit) chewable tablet (Caltrate plus D) 1 tab PO DAILY 01/20/25
cholecalciferol (vitamin D3) 50 mcg (2,000 unit) capsule (Vitamin D3) 50 mcg PO DAILY 01/20/25
cyanocobalamin (vitamin B-12) 1,000 mcg tablet 1,000 mcg PO DAILY 01/20/25
latanoprost 0.005 % eye drops 1 drp ophthalmic (eye) HS 01/20/25
metoprolol succinate 25 mg tablet,extended release 24 hr 25 mg PO HS 01/20/25
multivitamin with minerals-folic acid 0.4 mg tablet (One-A-Day Women's 50 Plus) 1 tab PO DAILY 01/20/25
simvastatin 10 mg tablet 10 mg PO HS 01/20/25
tirzepatide 7.5 mg/0.5 mL subcutaneous pen injector (Mounjaro) 7.5 mg SC SA 01/20/25
aspirin 81 mg tablet,delayed release 81 mg PO BID #0 tabs 01/28/25
oxycodone 5 mg tablet 5 mg PO Q4HPRN PRN severe pain #10 tabs 01/28/25
acetaminophen 325 mg tablet 650 mg PO Q4H PRN Mild Pain, T> 100 03/05/25
dextrose 40 % oral gel (Glucose Gel) 1 ea PO PRN PRN Glucose < 70 & unable to swallow 03/05/25
dextrose 50 % in water (D50W) 50 ml IV PRN PRN Hypoglycemia 03/05/25
docusate sodium 100 mg capsule 100 mg PO BID 03/05/25
glucagon 1 mg injection kit 1 mg IM PRN PRN Glucose <70 after glucose gel 03/05/25
insulin aspart U-100 100 unit/mL (3 mL) subcutaneous pen 10 unit SC MEALS 03/05/25
insulin degludec 200 unit/mL (3 mL) subcutaneous pen (Tresiba FlexTouch U-200 insulin) 40 unit SC HS 03/05/25
losartan 100 mg-hydrochlorothiazide 25 mg tablet 1 tab PO DAILY 03/05/25
magnesium hydroxide 400 mg/5 mL oral suspension 15 ml PO DAILY PRN if no BM x3 days 03/05/25
naloxone 4 mg/actuation nasal spray (Narcan) 1 spray intranasal Q3M PRN Suspected Overdose 03/05/25
ondansetron HCl 4 mg tablet 4 mg PO Q6H PRN Nausea/ Vomiting 03/05/25
pantoprazole 40 mg tablet,delayed release (Protonix) 40 mg PO DAILY 03/05/25
sennosides 8.6 mg-docusate sodium 50 mg tablet (Senexon-S) 1 tab-cap PO BID 03/05/25
sulfamethoxazole 800 mg-trimethoprim 160 mg tablet (Bactrim DS) 1 tab PO BID 03/05/25
Review of Systems
-
History Source: Patient
A 12 point ROS was completed and negative except as noted: Yes
Constitutional: Denies Fever
EENT: Denies Sore Throat
Respiratory: Denies Cough or Trouble Breathing
Cardiac: Denies Chest Pain
Abdomen/GI: Denies Abdominal Pain, Nausea or Diarrhea
: Denies Dysuria or Bleeding
Musculoskeletal: Reports Other (Right foot neuropathy)
Neurological: Denies Headache
Endocrine: Denies Temp Intolerance
Hematologic/Lymphatic: Denies Bruising
Psych: Denies Panic Disorder
Physical Exam
Vital Signs
Vital Signs
Temp Pulse Resp BP Pulse Ox
98.3 F 62 14 124/59 98
03/09/25 10:36 03/09/25 10:45 03/09/25 10:45 03/09/25 10:45 03/09/25 10:51
Physical Exam
General: No Apparent Distress, Comfortable and Conversant
HEENT: Anicteric and Moist mucous membranes
Respiratory: No Wheezes or Rales
Cardiac: S1/S2 and Regular Rhythm
GI: Soft, Non Tender and Non Distended
Genito-urinary: No Arreguin
Musculoskeletal: No Cyanosis and Other (Right foot and external fixation with a dressing, no bleeding noted)
Skin: Warm and Dry
Neuro: AO x 3 and Other ( followed commands appropriately); No Nonfocal/grossly intact
Psych: Calm; No Agitated
Impression/Plan
-
69 years old female post right foot surgery
# History of right Charcot foot with neuropathy/right ankle contracture/dislocation of the mid tarsal joint of the right foot status post repair in December 2024
Now admitted status post right lower extremity external fixator pin exchange and adjustment by Dr. Whitaker on 03/09/25. No complications reported
Per podiatry: RLE dressings to remain C/D/I
-NWB to RLE
-Continue Bactrim
-PT/OT
Discussed with podiatry, use subcu heparin for DVT prophylaxis. Patient was put on aspirin 81 mg twice daily and care home for prophylactic reason. We will switch her back to once a day.
# Diabetes-with neuropathy
Hemoglobin A1c 6.2 12/2024.
On Tresiba 40 units at night and NovoLog 10 AC as outpatient.
Continue Lantus 40 units and NovoLog 10 AC plus sliding scale coverage. Adjust NovoLog AC as needed
# Essential Hypertension-continue amlodipine but add holding parameters
c/w metoprolol
Blood pressure post surgery is low. We will resume losartan and hydrochlorothiazide after checking blood work and monitoring of blood pressure to avoid hypotension
# Hyperlipidemia no changes intended
# Obesity with a BMI of 44-
She is trying to adjust lifestyle, started in outpatient on Mounjaro 7.5 mg/week
# Bladder dysfunction-continue solifenacin
# B12 deficiency-continue B12 replacement
# History of gait dysfunction/second digit amputation left foot, first digit amputation left foot.
# Vitamin D deficiency-continue replacement
# Glaucoma-continue eye drops
# DVT prophylaxis-subcu heparin
# Full code
order CBC & CMP
Total time spent to see the patient, examine the patient, review data and lab result, discuss treatment plan with patient, podiatry doctor, PACU nurse around 75 minutes
[2025-03-09] MEDS: SUBLIMAZE 50 MCG IV (11:19)
[2025-03-09 11:58] LABS: Hematocrit 33.8 % (37.0-47.0); Hemoglobin 11.8 g/dL (12.0-16.0); Mean Corp Hgb Conc. 34.9 g/dL (33.0-37.0); Mean Corpuscular Hgb 29.6 pg (27.0-31.0); Mean Corpuscular Volume 84.7 fL (81.0-99.0); Mean Platelet Volume 10.6 fL (7.4-10.4); Platelet Count 199 10^3/uL (130-400); Red Blood Cell Count 3.99 10^6/uL (4.20-5.40); Red Cell Dist. Width 14.3 % (11.5-14.5)
--- NOTE | 2025-03-09 12:30 | PTCARENOTE ---
Pt received from the PACU via bed. Transport was w/o incident. Pt is AAOx3, HRR, Lungs are clear, resp. easy. Pt with external fixator to RLE/foot intact. Pt's right Popliteal pulse strong. Toes are warm, Unable to palpate DP pulse d/t hardware. Pt
reports minimal pain to right lower leg, declines pain med at this time. VSS, Pt is afebrile. Pt instructed on plan of care. Pt verbalized understanding of instructions, call dean is within reach.
[2025-03-09 12:33] LABS: ALT (SGPT) 12 U/L (0-35); AST (SGOT) 16 U/L (14-36); Albumin 3.7 g/dl (3.5-5.0); Alkaline Phosphatase 97 U/L (38-126); Blood Urea Nitrogen 29 mg/dl (7-17); Calcium 9.2 mg/dl (8.4-10.2); Carbon Dioxide 23 mmol/L (22-30); Chloride 104 mmol/L (98-107); Estimated Creatinine Clearance 54 ml/min; Glucose 167 mg/dl (70-99); Potassium 4.4 mmol/L (3.5-5.1); Sodium 137 mmol/L (135-145); Total Bilirubin 0.3 mg/dl (0.2-1.3); Total Protein 6.6 g/dl (6.3-8.2); eGFR 37.96
[2025-03-09 13:02] LABS: Glucose - Point of Care 175 mg/dl (70-99)
--- NOTE | 2025-03-09 13:47 | W.PN.UPDATE ---
Update Note
Progress Note Update
Blood work resulted. Creatinine 1.5, consistent with acute kidney injury.
Continue to hold losartan hydrochlorothiazide. Patient is tolerating diet well.
Will add bladder scan protocol.
Repeat BMP in the morning
[2025-03-09] MEDS: NOVOLOG FLEXPEN 10 UNITS SC ×2 (13:54→18:34)
[2025-03-09] MEDS: NOVOLOG FLEXPEN-MODERATE RESISTANCE 1 UNITS SC ×2 (13:54→18:35)
[2025-03-09 17:15] LABS: Glucose - Point of Care 150 mg/dl (70-99)
[2025-03-09] MEDS: HEPARIN 5000 UNITS SC (20:45)
[2025-03-09] MEDS: SENOKOT-S 1 TABLET PO (20:45)
[2025-03-09] MEDS: BACTRIM DS 800 MG/160 MG 1 TABLET PO (20:45)
[2025-03-09] MEDS: TOPROL XL 25 MG PO (21:14)
[2025-03-09 21:15] LABS: Glucose - Point of Care 119 mg/dl (70-99)
[2025-03-09] MEDS: NORVASC 10 MG PO (21:15)
[2025-03-09] MEDS: XALATAN OPHTHALMIC SOLUTION 1 DROP OPHTH (21:15)
[2025-03-09] MEDS: LANTUS 0.4 UNITS SC (21:15)
[2025-03-10] VITALS (7 sets, daily range): BP systolic 124–195; BP diastolic 50–72; PULSE 65–67; O2SAT 98
[2025-03-10] MEDS: TYLENOL 1000 MG PO ×3 (04:00→20:00)
[2025-03-10 07:13] LABS: Glucose - Point of Care 102 mg/dl (70-99)
[2025-03-10 07:45] LABS: Blood Urea Nitrogen 30 mg/dl (7-17); Calcium 9.1 mg/dl (8.4-10.2); Carbon Dioxide 26 mmol/L (22-30); Chloride 104 mmol/L (98-107); Estimated Creatinine Clearance 58 ml/min; Glucose 79 mg/dl (70-99); Sodium 138 mmol/L (135-145); eGFR 41.24
--- NOTE | 2025-03-10 07:46 | CM ---
Cm was updated by [facility] that they will accept back with authorization or patient will have to pay privately for return. CM will continue to follow.
[2025-03-10] MEDS: NOVOLOG FLEXPEN-MODERATE RESISTANCE SC ×3 (07:52→18:08)
[2025-03-10 08:47] LABS: Glycohemoglobin (HgbA1c) 6.4 % (4.0-5.6)
[2025-03-10] MEDS: ASPIR LOW (ENTERIC COATED) 81 MG PO (09:00)
[2025-03-10] MEDS: BACTRIM DS 800 MG/160 MG 1 TABLET PO ×2 (09:00→19:59)
[2025-03-10] MEDS: HEPARIN 5000 UNITS SC ×2 (09:00→19:59)
[2025-03-10] MEDS: PROTONIX 40 MG PO (09:01)
[2025-03-10] MEDS: SENOKOT-S 1 TABLET PO ×2 (09:02→19:59)
[2025-03-10] MEDS: NOVOLOG FLEXPEN 10 UNITS SC ×3 (09:02→18:30)
--- NOTE | 2025-03-10 09:17 | W.PN.HOSP.TC ---
Today's Communication/Plan
-
Order IVF for AUGUSTINE
holding HCTZ & Losartan
c/w PRN hydralazine
Not ready for dc today
Assessment / Plan
Assessment / Plan
Physical Exam
General: No Apparent Distress, Comfortable and Conversant
HEENT: Anicteric and Moist mucous membranes
Respiratory: No Wheezes or Rales
Cardiac: S1/S2 and Regular Rhythm
GI: Soft, Non Tender and Non Distended
Genito-urinary: No Arreguin
Musculoskeletal: No Cyanosis and Other (Right foot and external fixation with a dressing, no bleeding noted)
Skin: Warm and Dry
Neuro: AO x 3 and Other ( followed commands appropriately); No Nonfocal/grossly intact
Psych: Calm; No Agitated
69 years old female post right foot surgery
# History of right Charcot foot with neuropathy/right ankle contracture/dislocation of the mid tarsal joint of the right foot status post repair in December 2024
Now admitted status post right lower extremity external fixator pin exchange and adjustment by Dr. Whitaker on 03/09/25. No complications reported
Per podiatry: RLE dressings to remain C/D/I
-NWB to RLE
-Continue Bactrim
-PT/OT
Discussed with podiatry, use subcu heparin for DVT prophylaxis. Patient was put on aspirin 81 mg twice daily and shelter for prophylactic reason. Now on once a day.
# Acute kidney injury.
Creatinine is coming down to 1.4 from 1.5, likely pre-renal
Continue to hold losartan hydrochlorothiazide. Patient is tolerating diet well.
Give mild IVF
No retention on bladder scan protocol.
Repeat BMP in the morning
# Diabetes-with neuropathy
Hemoglobin A1c 6.2 12/2024.
On Tresiba 40 units at night and NovoLog 10 AC as outpatient.
Continue Lantus 40 units and NovoLog 10 AC plus sliding scale coverage. Adjust NovoLog AC as needed
# Essential Hypertension-continue amlodipine but add holding parameters
c/w metoprolol
Blood pressure is better, We will resume losartan and hydrochlorothiazide after improvement in renal function
for now
c/w amlodipine and BB PRN hydralazine
Avoid hypotension
# Hyperlipidemia no changes intended
# Obesity with a BMI of 44-
She is trying to adjust lifestyle, started in outpatient on Mounjaro 7.5 mg/week
# Bladder dysfunction-continue solifenacin
# B12 deficiency-continue B12 replacement
# History of gait dysfunction/second digit amputation left foot, first digit amputation left foot.
# Vitamin D deficiency-continue replacement
# Glaucoma-continue eye drops
# DVT prophylaxis-subcu heparin
# Full code
order CBC & CMP
Total time spent to see the patient, examine the patient, review data and lab result, discuss treatment plan with patient, nursing staff around 55 minutes
Anticipated Discharge: 24 - 48 hours
Subjective/Interval History
-
Date of Service: March 10, 2025
She feels better
she is making urine better than before
No chest pain or sob
Objective Data
-
Labs:
Laboratory Results
03/10/25
06:15
Sodium 138
Potassium 4.0
Chloride 104
Carbon Dioxide 26
BUN 30 H
Creatinine 1.4 H
Glucose 79
Calcium 9.1
Vital Signs:
Vital Signs
Temp Pulse Resp BP Pulse Ox
98.8 F 63 16 140/55 99
03/10/25 07:45 03/10/25 07:45 03/10/25 07:45 03/10/25 07:45 03/10/25 07:45
I&O
03/09/25 03/10/25 03/11/25
06:59 06:59 06:59
Intake Total 1400 / 1400
Output Total 1050 / 1050
Balance 350 / 350
[2025-03-10] MEDS: NSS 1000 IV (10:06)
[2025-03-10 11:38] LABS: Glucose - Point of Care 76 mg/dl (70-99)
--- NOTE | 2025-03-10 12:53 | CM ---
Reviewed the chart notes and spoke with the patient at the bedside. Patient was discharged from [facility] to hospital for surgical revision. The patient prior to hospitalization resided alone in a 2sty home with a total of two steps to enter living
space. The patient has a rolling walker and cane in home. The patient has not had VN in the past. Patient anticipates needing SNF/rehab prior to transitioning home at discharge. Precert is required. Waiting on PT/OT eval for referral to be
sent in [facility]. CM continues to be available to patient/family and is monitoring medical plan for needs at discharge.
Plan: Discharge to SNF/rehab once medically stable, bed secured and precert obtained.
--- NOTE | 2025-03-10 16:35 | W.PN.SURGUPD ---
Surgical Update
Surgical Update
69 yo F s/p RLE external fixator application
-Dressings to remain C/D/I
-PT/OT
-WB for transfer to [facility] acceptable, otherwise should be [facility]
-Recommend DC to SNF if possible pending SW evaluation
-If DC home, will need dressings changes 1-2 times weekly by home nursing
-Follow up at [facility] in 2 weeks
[2025-03-10 17:02] LABS: Glucose - Point of Care 78 mg/dl (70-99)
[2025-03-10 21:19] LABS: Glucose - Point of Care 99 mg/dl (70-99)
[2025-03-10] MEDS: LANTUS 0.4 UNITS SC (21:57)
[2025-03-10] MEDS: XALATAN OPHTHALMIC SOLUTION 1 DROP OPHTH (21:57)
[2025-03-10] MEDS: NORVASC 10 MG PO (21:58)
[2025-03-10] MEDS: TOPROL XL 25 MG PO (21:58)
[2025-03-11] MEDS: NSS 1000 IV (01:23)
[2025-03-11] MEDS: TYLENOL 1000 MG PO ×4 (02:00→22:13)
[2025-03-11 07:08] LABS: Glucose - Point of Care 101 mg/dl (70-99)
[2025-03-11 07:45] VITALS: BP 149/69
[2025-03-11] MEDS: NOVOLOG FLEXPEN-MODERATE RESISTANCE SC ×3 (08:15→17:13)
[2025-03-11] MEDS: BACTRIM DS 800 MG/160 MG 1 TABLET PO (08:16)
[2025-03-11] MEDS: ASPIR LOW (ENTERIC COATED) 81 MG PO (08:16)
[2025-03-11] MEDS: PROTONIX 40 MG PO (08:16)
[2025-03-11 08:17] LABS: Hematocrit 32.8 % (37.0-47.0); Hemoglobin 10.9 g/dL (12.0-16.0); Mean Corp Hgb Conc. 33.2 g/dL (33.0-37.0); Mean Corpuscular Hgb 29.1 pg (27.0-31.0); Mean Corpuscular Volume 87.5 fL (81.0-99.0); Mean Platelet Volume 11.2 fL (7.4-10.4); Platelet Count 217 10^3/uL (130-400); Red Blood Cell Count 3.75 10^6/uL (4.20-5.40); Red Cell Dist. Width 14.7 % (11.5-14.5); White Blood Cell Count 6.8 10^3/uL (4.8-10.8)
[2025-03-11] MEDS: HEPARIN 5000 UNITS SC ×2 (08:17→19:46)
[2025-03-11] MEDS: SENOKOT-S 1 TABLET PO ×2 (08:17→19:46)
[2025-03-11] MEDS: NOVOLOG FLEXPEN 10 UNITS SC ×3 (08:25→18:09)
[2025-03-11 08:46] LABS: Blood Urea Nitrogen 26 mg/dl (7-17); Calcium 8.8 mg/dl (8.4-10.2); Carbon Dioxide 26 mmol/L (22-30); Chloride 108 mmol/L (98-107); Estimated Creatinine Clearance 66 ml/min; Glucose 93 mg/dl (70-99); Potassium 4.3 mmol/L (3.5-5.1); Sodium 138 mmol/L (135-145); eGFR 49.31
--- NOTE | 2025-03-11 09:26 | W.PN.HOSP.TC ---
Today's Communication/Plan
-
dc
Assessment / Plan
Assessment / Plan
Physical Exam
General: No Apparent Distress, Comfortable and Conversant
HEENT: Anicteric and Moist mucous membranes
Respiratory: No Wheezes or Rales
Cardiac: S1/S2 and Regular Rhythm
GI: Soft, Non Tender and Non Distended
Genito-urinary: No Arreguin
Musculoskeletal: No Cyanosis and Other (Right foot and external fixation with a dressing, no bleeding noted)
Skin: Warm and Dry
Neuro: AO x 3 and Other ( followed commands appropriately); No Nonfocal/grossly intact
Psych: Calm; No Agitated
69 years old female post right foot surgery
# History of right Charcot foot with neuropathy/right ankle contracture/dislocation of the mid tarsal joint of the right foot status post repair in December 2024
Now admitted status post right lower extremity external fixator pin exchange and adjustment by Dr. Whitaker on 03/09/25. No complications reported
Per podiatry: RLE dressings to remain C/D/I
-NWB to RLE
-Continue Bactrim
-PT/OT
Discussed with podiatry, use subcu heparin for DVT prophylaxis. Patient was put on aspirin 81 mg twice daily and snf for prophylactic reason. Now on once a day.
# Acute kidney injury.
Creatinine is coming down to 1.2 from 1.5, likely pre-renal
ok to resume losartan hydrochlorothiazide. Patient is tolerating diet well.
s/p IVF
No retention on bladder scan protocol.
Repeat BMP in 5 days
# Diabetes-with neuropathy
Hemoglobin A1c 6.2 12/2024.
On Tresiba 40 units at night and NovoLog 10 AC as outpatient.
Continue Lantus 40 units and NovoLog 10 AC plus sliding scale coverage. Adjust NovoLog AC as needed
# Essential Hypertension-continue amlodipine but add holding parameters
c/w metoprolol
Blood pressure is better, We will resume losartan and hydrochlorothiazide after improvement in renal function
for now
c/w amlodipine and BB PRN hydralazine
Avoid hypotension
# Hyperlipidemia no changes intended
# Obesity with a BMI of 44-
She is trying to adjust lifestyle, started in outpatient on Mounjaro 7.5 mg/week
# Bladder dysfunction-continue solifenacin
# B12 deficiency-continue B12 replacement
# History of gait dysfunction/second digit amputation left foot, first digit amputation left foot.
# Vitamin D deficiency-continue replacement
# Glaucoma-continue eye drops
# DVT prophylaxis-subcu heparin
# Full code
Total dc time spent to see the patient, examine the patient, review data and lab result, discuss discharge plan with patient, nursing staff around 65 minutes
Anticipated Discharge: Today
Subjective/Interval History
-
Date of Service: March 11, 2025
No chest pain
No sob
No fevers
Objective Data
-
Labs:
Laboratory Results
03/11/25
07:34
WBC 6.8
Hgb 10.9 L
Hct 32.8 L
Plt Count 217
Sodium 138
Potassium 4.3
Chloride 108 H
Carbon Dioxide 26
BUN 26 H
Creatinine 1.2 H
Glucose 93
Calcium 8.8
Vital Signs:
Vital Signs
Temp Pulse Resp BP Pulse Ox
98.2 F 60 16 149/69 95
03/11/25 07:45 03/11/25 07:45 03/11/25 07:45 03/11/25 07:45 03/11/25 07:45
I&O
03/10/25 03/11/25 03/12/25
06:59 06:59 06:59
Intake Total 1400 / 1400 2019
Output Total 1050 / 1050 1900 / 1900
Balance 350 / 350 120 / 120
[2025-03-11 11:49] LABS: Glucose - Point of Care 91 mg/dl (70-99)
[2025-03-11] MEDS: NSS IV (12:04)
[2025-03-11 13:05] VITALS: BP 159/71; PULSE 64
--- NOTE | 2025-03-11 14:13 | CM ---
Addendum entered by Elissa Sloan RN 03/12/25 08:44:
Plan: Discharge to [facility] today.
Call report to: [phone], ext [phone]
Fax report to: [phone]
Medical necessity and transport forms on chart.
Addendum entered by Elissa Sloan RN 03/11/25 16:25:
IMM reviewed.
[facility] offered bed for tomorrow. Patient in agreement.
Auth approved# [id number]; 03/12-03/16; call clinical updtd to [phone]
Plan: Discharge to [facility] tomorrow ().
Original Note:
Reviewed the chart notes and spoke with the patient at the bedside. Referrals sent earlier, no accepting facility. Permission received to send additional referrals to area facilities. CM continues to be available to patient/family and is
monitoring medical plan for needs at discharge.
Plan: Discharge to SNF/rehab prior to transitioning back to home.
[2025-03-11 15:50] VITALS: BP 164/62
[2025-03-11 17:09] LABS: Glucose - Point of Care 101 mg/dl (70-99)
[2025-03-11] MEDS: VIBRAMYCIN 100 MG PO (19:46)
[2025-03-11 22:04] LABS: Glucose - Point of Care 118 mg/dl (70-99)
[2025-03-11] MEDS: LANTUS 0.4 UNITS SC (22:05)
[2025-03-11] MEDS: TOPROL XL 25 MG PO (22:05)
[2025-03-11] MEDS: NORVASC 10 MG PO (22:05)
[2025-03-11] MEDS: MIRALAX 17 GRAMS PO (22:06)
[2025-03-11] MEDS: XALATAN OPHTHALMIC SOLUTION 1 DROP OPHTH (22:10)
[2025-03-11 23:11] VITALS: BP 151/62
[2025-03-12] MEDS: TYLENOL 1000 MG PO ×2 (03:29→10:40)
[2025-03-12 07:10] VITALS: BP 148/62
[2025-03-12 07:53] LABS: Glucose - Point of Care 152 mg/dl (70-99)
[2025-03-12] MEDS: NOVOLOG FLEXPEN-MODERATE RESISTANCE SC ×2 (08:06→11:51)
[2025-03-12] MEDS: PROTONIX 40 MG PO (08:07)
[2025-03-12] MEDS: VIBRAMYCIN 100 MG PO (08:07)
[2025-03-12] MEDS: SENOKOT-S 1 TABLET PO (08:07)
[2025-03-12] MEDS: ASPIR LOW (ENTERIC COATED) 81 MG PO (08:07)
[2025-03-12] MEDS: COZAAR 100 MG PO (08:07)
[2025-03-12] MEDS: NOVOLOG FLEXPEN 10 UNITS SC ×2 (08:08→12:21)
[2025-03-12] MEDS: HEPARIN 5000 UNITS SC (08:08)
--- NOTE | 2025-03-12 09:09 | W.PN.HOSP.TC ---
Today's Communication/Plan
-
dc
Assessment / Plan
Assessment / Plan
Physical Exam
General: No Apparent Distress, Comfortable and Conversant
HEENT: Anicteric and Moist mucous membranes
Respiratory: No Wheezes or Rales
Cardiac: S1/S2 and Regular Rhythm
GI: Soft, Non Tender and Non Distended
Genito-urinary: No Arreguin
Musculoskeletal: No Cyanosis and Other (Right foot and external fixation with a dressing/ external fixation, no bleeding noted)
Skin: Warm and Dry
Neuro: AO x 3 and Other ( followed commands appropriately); No Nonfocal/grossly intact
Psych: Calm; No Agitated
69 years old female post right foot surgery
# History of right Charcot foot with neuropathy/right ankle contracture/dislocation of the mid tarsal joint of the right foot status post repair in December 2024
Now admitted status post right lower extremity external fixator pin exchange and adjustment by Dr. Whitaker on 03/09/25. No complications reported
Per podiatry: RLE dressings to remain C/D/I
-NWB to RLE
-Continue Bactrim
-PT/OT
Discussed with podiatry, use subcu heparin for DVT prophylaxis. Patient was put on aspirin 81 mg twice daily and [facility] for prophylactic reason. Now on once a day.
# Acute kidney injury.
Creatinine is coming down to 1.2 from 1.5, likely pre-renal
ok to resume losartan hydrochlorothiazide. Patient is tolerating diet well.
s/p IVF
No retention on bladder scan protocol.
Repeat BMP in 5 days
# Diabetes-with neuropathy
Hemoglobin A1c 6.2 12/2024.
On Tresiba 40 units at night and NovoLog 10 AC as outpatient.
Continue Lantus 40 units and NovoLog 10 AC plus sliding scale coverage. Adjust NovoLog AC as needed
# Essential Hypertension-continue amlodipine but add holding parameters
c/w metoprolol
Blood pressure is better, We will resume losartan and hydrochlorothiazide after improvement in renal function
for now
c/w amlodipine and BB PRN hydralazine
Avoid hypotension
# Hyperlipidemia no changes intended
# Obesity with a BMI of 44-
She is trying to adjust lifestyle, started in outpatient on Mounjaro 7.5 mg/week
# Bladder dysfunction-continue solifenacin
# B12 deficiency-continue B12 replacement
# History of gait dysfunction/second digit amputation left foot, first digit amputation left foot.
# Vitamin D deficiency-continue replacement
# Glaucoma-continue eye drops
# DVT prophylaxis-subcu heparin
# Full code
Total dc time spent to see the patient, examine the patient, review data and lab result, discuss discharge plan with patient, nursing staff around 65 minutes
Anticipated Discharge: Today
Subjective/Interval History
-
Date of Service: March 12, 2025
Doing well
No complaints
Objective Data
-
Vital Signs:
Vital Signs
Temp Pulse Resp BP Pulse Ox
98.3 F 56 16 148/62 96
03/12/25 07:10 03/12/25 07:10 03/12/25 07:10 03/12/25 07:10 03/12/25 07:10
I&O
03/11/25 03/12/25 03/13/25
06:59 06:59 06:59
Intake Total 2019 2317 / 2317
Output Total 1900 / 1900 750 / 750
Balance 120 / 120 1567 / 1567
[2025-03-12 11:26] VITALS: BP 148/72
[2025-03-12 11:42] LABS: Glucose - Point of Care 106 mg/dl (70-99)
--- NOTE | 2025-03-12 11:52 | PTCARENOTE ---
Dr Packer notified to update [place] paperwork to include wound care instructions, acknowledged message. Care ongoing.
--- NOTE | 2025-03-12 11:53 | W.DCSUMMARY ---
Discharge Summary
Discharge Data
Date of Admission: 03/09/25
Date of Discharge: 03/12/25
-
Pending Results: No
Hospital Course
70 years old female who underwent surgery to right foot Charcot foot with midfoot dislocation on January 26, [address] Don Packer that included application of multiplanar external fixator and excision of prominent tarsometatarsal bone with open
reduction of midfoot dislocation. Patient was discharged on January 28, 2025 to [facility] facility. Patient reported during her stay at [facility], she sustained an accident when a staff member tried to pull on the external fixator device that led
to severe pain and discomfort at the time. She presented to Dr. Sohail Whitaker in office on March 04 for a follow-up care from surgery. Patient reported at the time increased pain, redness and drainage to her upper leg pin site. The doctor at rehab
had placed her on oral Bactrim. She did not have fever or chills. Patient underwent right leg external fixator adjustment with incision and drainage of an infected pin by Dr. Whitaker on March 09, 2025. Patient was referred to inpatient care
services at [facility] under medicine service. Patient was noted to have creatinine 1.5 from baseline 0.9 in January 2025. Patient was treated for acute kidney injury, likely prerenal. Hydrochlorothiazide and losartan were held. Patient was
given intravenous fluid. She did not have urinary retention on bladder scan. Creatinine improved and came down to 1.2. Patient had good urine output with good appetite. No urinary symptoms or abdominal discomfort. Patient was followed by
podiatry doctor during hospitalization. Podiatry surgery recommended to continue oral doxycycline treatment for an additional 14 days starting from day of surgery on March 09, 2025. Patient remained hemodynamically stable. Patient did not have
worsening pain or redness to the right leg. She did not need painkiller, she used Tylenol as needed only. She was evaluated by physical therapy. She was maintained nonweightbearing status to right leg. Patient was evaluated by director case management.
Patient made selection to another SNF facility and she was discharged in a stable condition.
Discharge Plan
-
Patient Disposition: Care Home/SNF
Discharge Diagnosis/Procedures: s/p RLE external fixator application
Diet: Diabetic, Carb Controlled
Activity: Do not bear weight R leg
Blood Work: BMP & CBC in 5 days
Wound Care: will need dressings changes 1-2 times weekly by home nursing
Referrals:
Sohail Whitaker MD [Active, Podiatry] - in one to two weeks
UNKNOWN - PT DOES,NOT KNOW [Family Provider]
Prescriptions:
New
heparin (porcine) 5,000 unit/mL Solution
5,000 unit SC Q12 24 Days Qty: 48 0RF
acetaminophen [Tylenol Extra Strength] 500 mg Tablet
1,000 mg PO Q6HPRN PRN (Reason: pain) Qty: 20 0RF
doxycycline hyclate 100 mg Capsule
100 mg PO Q12 Qty: 20 0RF
Continued
latanoprost 0.005 % Drops
1 drp OPHTHALMIC (EYE) HS
Rx Instructions:
BOTH EYES
simvastatin 10 mg Tablet
10 mg PO HS
cyanocobalamin (vitamin B-12) 1,000 mcg Tablet
1,000 mcg PO DAILY
amlodipine 10 mg Tablet
10 mg PO HS
metoprolol succinate 25 mg Tablet Extended Release 24 Hr
25 mg PO HS
multivit with min-folic acid [One-A-Day Women's 50 Plus] 0.4 mg Tablet
1 tab PO DAILY
cholecalciferol (vitamin D3) [Vitamin D3] 50 mcg (2,000 unit) Capsule
50 mcg PO DAILY
Caltrate 600 plus D 600 mg-20 mcg (800 unit) Tablet,Chewable
1 tab PO DAILY
Mounjaro 7.5 mg/0.5 mL Pen Injector
7.5 mg SC SA
ondansetron HCl 4 mg Tablet
4 mg PO Q6H PRN (Reason: Nausea/ Vomiting)
losartan-hydrochlorothiazide 100-25 mg Tablet
1 tab PO DAILY
magnesium hydroxide 400 mg/5 mL Suspension
15 ml PO DAILY PRN (Reason: if no BM x3 days)
sennosides-docusate sodium [Senexon-S] 8.6-50 mg Tablet
1 tab-cap PO BID
pantoprazole [Protonix] 40 mg Tablet,Delayed Release (Dr/Ec)
40 mg PO DAILY
insulin degludec [Tresiba FlexTouch U-200] 200 unit/mL (3 mL) Insulin Pen
40 unit SC HS
Rx Instructions:
Hold of BS<120
insulin aspart U-100 100 unit/mL (3 mL) Insulin Pen
10 unit SC MEALS
Changed
aspirin 81 mg Tablet,Delayed Release (Dr/Ec)
81 mg PO DAILY Qty: 0 0RF
Discontinued
biotin 5,000 mcg Tablet,Chewable
5,000 mcg PO DAILY
oxycodone 5 mg Tablet
5 mg PO Q4HPRN PRN (Reason: severe pain) Qty: 10 0RF
sulfamethoxazole-trimethoprim [Bactrim DS] 800-160 mg Tablet
1 tab PO BID
naloxone [Narcan] 4 mg/actuation [place],Non-Aerosol
1 spray INTRANASAL Q3M PRN (Reason: Suspected Overdose)
Glucagon Emergency Kit 1 mg Kit
1 mg IM PRN PRN (Reason: Glucose <70 after glucose gel)
acetaminophen 325 mg Tablet
650 mg PO Q4H PRN (Reason: Mild Pain, T> 100)
dextrose [Glucose Gel] 40 % Gel
1 ea PO PRN PRN (Reason: Glucose < 70 & unable to swallow)
docusate sodium 100 mg Capsule
100 mg PO BID
dextrose 50 % in water (D50W) Syringe
50 ml IV PRN PRN (Reason: Hypoglycemia)
Patient Comments:
Start w/ 20ml slow push,it pt does ot regain consciousness may give up to 50ml
Discharge Orders:
Discharge Patient (As Directed); Ordered 03/11/25
Ordered By: Marcello Mtz
Discharge Date and Time
Print Language: OCCITAN
== END 2025-03-12 13:02 | DRG 464 ==
LOC: 2 SOUTH 12:08
PROVIDERS: Student in an Organized Health Care Education/Training Program; ADMITTING PHYSICIAN Internal Medicine
PROC: 0SW Lower Joints, Revision (ICD-10-PCS; 2025-03-09)
PROC: 0JBN0ZZ Excision of Right Lower Leg Subcutaneous Tissue and Fascia, Open Approach (ICD-10-PCS; 2025-03-09)
DX: T84.69XA Infection and inflammatory reaction due to internal fixation device of other site, initial encounter (principal); L03.115 Cellulitis of right lower limb; Z68.41 Body mass index [BMI] 40.0-44.9, adult; G57.91 Unspecified mononeuropathy of right lower limb; E11.41 Type 2 diabetes mellitus with diabetic mononeuropathy; E11.610 Type 2 diabetes mellitus with diabetic neuropathic arthropathy; E66.9 Obesity, unspecified; E53.8 Deficiency of other specified B group vitamins; E55.9 Vitamin D deficiency, unspecified; E78.5 Hyperlipidemia, unspecified; I10 Essential (primary) hypertension; Z79.4 Long term (current) use of insulin; Z88.0 Allergy status to penicillin
CPT/HCPCS: 73610; 76000; 80048; 80053; 82962; 83036; 85027; 87070; 97163; 97167; 97530; 97535

== ENCOUNTER 2025-04-16 11:03 | Inpatient (IN) | payer OTHER, SELFPAY ==
[2025-04-16] VITALS (17 sets, daily range): BP systolic 116–151; BP diastolic 48–59; BMI 43.4
--- NOTE | 2025-04-16 09:34 | CM ---
CM received call from [facility]. Patient is known to them and they are requesting referral back once patient is medically ready for discharge.
[2025-04-16 10:50] LABS: Glucose - Point of Care 175 mg/dl (70-99)
[2025-04-16] MEDS: TYLENOL 1000 MG PO (11:10)
[2025-04-16] MEDS: CELEBREX 200 MG PO (11:10)
[2025-04-16] MEDS: NORMOSOL-R/PLASMALYTE-A 1000 IV (11:11)
[2025-04-16] MEDS: VANCOCIN 530 MG IV (11:19)
[2025-04-16 12:33] LABS: Glucose - Point of Care 159 mg/dl (70-99)
[2025-04-16 13:41] LABS: Glucose - Point of Care 135 mg/dl (70-99)
--- NOTE | 2025-04-16 13:49 | HPS.HSE ---
Family Physician
-
Family Physician: INTERVIEWE UNKNOWN - PT NOT
Chief Complaint
-
post op surgery-not in pain
History of Present Illness
70-year-old female with extensive past medical history of Charcot joint of the right foot who was seen by orthopedic in the office for concern for pin tract infection and plan to removal of the hardware in the OR earlier today. Patient says she was
having frequent cellulitis on the right lower extremity. She received multiple antibiotics. Patient also underwent status post right lower extremity external fixator pin exchange and adjustment by Dr. Whitaker on 03/09/25. Patient was taken to the
operating by Dr. Packer S/p TARA ex fix removal and I and D. Patient currently seen in PACU and denies any chest pain, shortness of breath abdominal pain, nausea, vomiting. Denies any right lower extremity pain. Patient denies any prior history
of cardiac. States she lives at home however currently in rehab. Patient just got out of the OR and currently in PACU on oxygenation.
Medical History
Past Medical History
Past Medical History: Reports Other
Additional Past Medical History:
Diabetes mellitus
Primary hypertension
Hyperlipidemia
Morbid obesity to excess calories
Charcot foot with neuropathy of the right foot,
Past Surgical History: Reports Other
Additional Past Surgical History:
Right lower extremity external fixator pin exchange and adjustment on March 09, 2025.
Social History
Tobacco: Non-smoker
Alcohol: None
Living: Long-Term
Family History
Family History: Not pertinent
Allergies / Home Medications
Allergies reflects when Allergies were last updated in [employer].
Home Medications with original date entered in [employer]
Allergy/Medication List:
Allergies
Allergy/AdvReac Type Severity Reaction Status Date / Time
levofloxacin (From Levaquin) Allergy Per Verified 04/16/25 10:37
Facility
Penicillins Allergy Hives/Per Verified 04/16/25 10:37
Facility
Home Medications
amlodipine 10 mg tablet 10 mg PO HS Blood Pressure 01/20/25
calcium 600 mg (as carbonate)-vit D3 20 mcg (800 unit) chewable tablet (Caltrate plus D) 1 tab PO DAILY Supplement 01/20/25
cholecalciferol (vitamin D3) 50 mcg (2,000 unit) capsule (Vitamin D3) 50 mcg PO DAILY Supplement 01/20/25
cyanocobalamin (vitamin B-12) 1,000 mcg tablet 1,000 mcg PO DAILY Supplement 01/20/25
latanoprost 0.005 % eye drops 1 drp ophthalmic (eye) HS Eye Condition 01/20/25
metoprolol succinate 25 mg tablet,extended release 24 hr 25 mg PO HS Blood Pressure 01/20/25
multivitamin with minerals-folic acid 0.4 mg tablet (One-A-Day Women's 50 Plus) 1 tab PO DAILY Supplement 01/20/25
simvastatin 10 mg tablet 10 mg PO HS High Cholesterol 01/20/25
tirzepatide 7.5 mg/0.5 mL subcutaneous pen injector (Mounjaro) 7.5 mg SC SA Diabetes 01/20/25
insulin aspart U-100 100 unit/mL (3 mL) subcutaneous pen 10 unit SC MEALS Diabetes 03/05/25
insulin degludec 200 unit/mL (3 mL) subcutaneous pen (Tresiba FlexTouch U-200 insulin) 40 unit SC HS Diabetes 03/05/25
losartan 100 mg-hydrochlorothiazide 25 mg tablet 1 tab PO DAILY Blood Pressure 03/05/25
pantoprazole 40 mg tablet,delayed release (Protonix) 40 mg PO DAILY GERD 03/05/25
sennosides 8.6 mg-docusate sodium 50 mg tablet (Senexon-S) 1 tab-cap PO BID Constipation 03/05/25
aspirin 81 mg tablet,delayed release 81 mg PO DAILY #0 tabs 03/11/25
doxycycline hyclate 100 mg capsule 100 mg PO Q12 #20 caps 03/11/25
acetaminophen 500 mg tablet (Tylenol Extra Strength) 500 mg PO Q6HPRN PRN pain 04/14/25
Review of Systems
-
History Source: Patient
A 12 point ROS was completed and negative except as noted: Yes
Physical Exam
Vital Signs
Vital Signs
Temp Pulse Resp BP Pulse Ox
97.5 F 61 16 117/49 99
04/16/25 13:38 04/16/25 13:38 04/16/25 10:47 04/16/25 13:38 04/16/25 13:38
Physical Exam
General: Well Developed, Well Nourished, No Apparent Distress and Morbidly Obese
HEENT: NormoCephalic, Anicteric, Moist mucous membranes and Atraumatic
Respiratory: Non Labored Respirations; No Accessory Resp Muscle Use
Cardiac: S1/S2 and Regular Rhythm; No Murmur or Rub
GI: Soft, Non Tender, Non Distended and Normal Bowel Sounds; No Organomegaly
Rectal: Deferred by Provider
Musculoskeletal: No Clubbing, No Cyanosis and Other (Right lower extremity covered in Luis wrap)
Skin: No Rash
Neuro: Awake and Nonfocal/grossly intact
Psych: Calm
Impression/Plan
-
#History of Right Charcot foot with neuropathy/right ankle contracture/dislocation of the mid tarsal joint of the right foot status post repair in December 2024/March 2025
S/p RLE ex fix removal and I and D by Dr. Packer today 04/16/2025
Started on IV vancomycin per podiatry. Added cefepime with history of diabetes.
Podiatry recommended 2 weeks of antibiotics
Follow-up on any OR deep tissue cultures
Podiatry recommend nonweightbearing to right lower extremity
antibiotics course per podiatry
Pain control
Check labs
Awaiting op report
Podiatry further evaluation
#Diabetes melitis with neuropathy
Continue with home regimen of insulin
Insulin sliding scale and Accu-Cheks
Update A1c
#Primary hypertension
Continue with Norvasc with hold parameters
restart losartan hydrochlorothiazide based on CrCl-labs pending
Continue metoprolol
Avoid hypotension
#Hyperlipidemia
Continue with statin
#Morbid obesity due to excess calories
As outpatient patient is on on Mounjaro 7.5 mg/week
# B12 and vitamin D deficiency-continue with replacement
# Glaucoma-continue eye drops
# DVT prophylaxis-subcu heparin
# Full code
I spent a total of 80 minutes with the patient or on the floor. More than 50% of this time involved counseling and coordination of care.
[2025-04-16] MEDS: MORPHINE SULFATE 2 MG IV ×2 (14:18→15:02)
[2025-04-16 16:46] LABS: Hematocrit 29.3 % (37.0-47.0); Hemoglobin 10.1 g/dL (12.0-16.0); Mean Corp Hgb Conc. 34.5 g/dL (33.0-37.0); Mean Corpuscular Volume 86.9 fL (81.0-99.0); Nucleated Red Blood Cells % 0 %; Platelet Count 274 10^3/uL (130-400); Red Cell Dist. Width 14.5 % (11.5-14.5)
[2025-04-16 17:09] LABS: Blood Urea Nitrogen 26 mg/dl (7-17); Calcium 8.6 mg/dl (8.4-10.2); Carbon Dioxide 25 mmol/L (22-30); Chloride 104 mmol/L (98-107); Estimated Creatinine Clearance 99 ml/min; Glucose 141 mg/dl (70-99); Potassium 3.9 mmol/L (3.5-5.1); Sodium 137 mmol/L (135-145); eGFR > 60.00
[2025-04-16 17:24] LABS: Glucose - Point of Care 138 mg/dl (70-99)
--- NOTE | 2025-04-16 17:41 | PHA.VAN.IN ---
Assessment
- Assessment
Renal Function: Appears similar to baseline (02/02/25 BASELINE SCR: 0.8)
Concomitant Antimicrobials: CEFEPIME
- Previous Dosing Experience
Previous Regimen: 1500MG IV Q12H
Date of Regimen: 01/27/25
Provided Trough of: 15.1 PREDICTED
Provided AUC of: 573 PREDICTED
Patient's SCR is: Similar to previous dosing experience (01/27/25 SCR = 0.9)
Patient's weight is: Decreased compared to previous dosing experience (01/27/25 WT = 138.8 KG)
AUC Dosing Plan
- Dosing Variables
Dosing Weight (kg): 133.4
Dosing CrCl (ml/min): 99
Vd coefficient (L/kg): 0.6
- Empiric Dosing
Initial / Loading Dose: 2 GM TOTAL
Maintenance Regimen: 1750MG IV Q12H
Estimated AUC (mcg*h/mL): 549
Estimated Peak (mcg*h/mL): 33.8
Estimated Trough (mcg/ml): 14.2
Estimated Half Life (H): 8.0
Pharmacokinetics Vancomycin I
- -
Patient Age: 70
Patient Sex: Female
Vancomycin Day #: 1
Indication: Bone And Joint ([R] CHARCOT FOOT )
Requesting Provider: AALIYAH
Pertinent Antimicrobial Allergies:
Allergies
Penicillins Allergy (Verified 04/16/25 10:37)
Hives/Per Facility
levofloxacin (From Levaquin) Allergy (Verified 04/16/25 10:37)
Per Facility
Height / Weight:
Height 5 ft 9 in
Actual Weight 133.356 kg
Pertinent Past Medical History: PRIOR ADMIT FOR SAME 01/26/25
- Vital Signs / Lab Results
Temp Pulse Resp BP Pulse Ox
98.2 F 75 16 132/59 95
04/16/25 17:00 04/16/25 17:00 04/16/25 17:00 04/16/25 17:00 04/16/25 17:00
Lab Results - Hematology
04/16/25
16:38
WBC 9.4
Lab Results - Chemistry
04/16/25
16:38
BUN 26 H
Creatinine 0.8
Estimated Creat Clear 99
[2025-04-16] MEDS: NOVOLOG FLEXPEN-LOW RESISTANCE SC (17:52)
[2025-04-16] MEDS: VANCOCIN HCL 500 MG 100 IV (17:53)
[2025-04-16] MEDS: NOVOLOG FLEXPEN 10 UNITS SC (17:53)
[2025-04-16] MEDS: STERILE WATER FOR INJECTION 10 ML IV ×2 (18:11→23:08)
[2025-04-16] MEDS: MAXIPIME 1000 MG IV ×2 (18:12→23:08)
[2025-04-16 21:10] LABS: Glucose - Point of Care 278 mg/dl (70-99)
[2025-04-16] MEDS: HEPARIN 5000 UNITS SC (21:23)
[2025-04-16] MEDS: LANTUS 0.4 UNITS SC (21:23)
[2025-04-16] MEDS: SENOKOT-S 1 TABLET PO (21:23)
[2025-04-16] MEDS: LIPITOR 10 MG PO (21:24)
[2025-04-16] MEDS: NORVASC PO (21:25)
[2025-04-16] MEDS: TOPROL XL PO (21:26)
[2025-04-16] MEDS: XALATAN OPHTHALMIC SOLUTION 1 DROP OPHTH (21:26)
[2025-04-16] MEDS: ROXICODONE 5 MG PO (21:27)
[2025-04-17] VITALS (8 sets, daily range): BP systolic 119–140; BP diastolic 45–54; PULSE 59–63; O2SAT 95–98
[2025-04-17] MEDS: STERILE WATER FOR INJECTION 10 ML IV ×3 (05:33→17:34)
[2025-04-17] MEDS: VANCOCIN 535 MG IV (05:34)
[2025-04-17] MEDS: MAXIPIME 1000 MG IV ×3 (05:34→17:33)
[2025-04-17] MEDS: ROXICODONE 5 MG PO ×2 (06:23→20:50)
[2025-04-17 07:34] LABS: Hematocrit 29.0 % (37.0-47.0); Hemoglobin 9.4 g/dL (12.0-16.0); Mean Corp Hgb Conc. 32.4 g/dL (33.0-37.0); Mean Corpuscular Volume 90.1 fL (81.0-99.0); Nucleated Red Blood Cells % 0 %; Platelet Count 288 10^3/uL (130-400); Red Cell Dist. Width 14.6 % (11.5-14.5)
[2025-04-17 07:50] LABS: Blood Urea Nitrogen 29 mg/dl (7-17); Calcium 8.7 mg/dl (8.4-10.2); Carbon Dioxide 29 mmol/L (22-30); Chloride 104 mmol/L (98-107); Estimated Creatinine Clearance 99 ml/min; Glucose 186 mg/dl (70-99); Potassium 4.2 mmol/L (3.5-5.1); Sodium 138 mmol/L (135-145); eGFR > 60.00
[2025-04-17 07:57] LABS: Glucose - Point of Care 197 mg/dl (70-99)
[2025-04-17] MEDS: NOVOLOG FLEXPEN 10 UNITS SC ×3 (08:10→18:18)
[2025-04-17] MEDS: SENOKOT-S 1 TABLET PO ×2 (08:11→20:25)
[2025-04-17] MEDS: OSCAL 500 + D 500 MG PO (08:11)
[2025-04-17] MEDS: ASPIR LOW (ENTERIC COATED) 81 MG PO (08:11)
[2025-04-17] MEDS: PROTONIX 40 MG PO (08:11)
[2025-04-17] MEDS: HEPARIN 5000 UNITS SC ×2 (08:11→17:34)
[2025-04-17] MEDS: VITAMIN D3 (cholecalciferol) 50 MCG PO (08:11)
[2025-04-17] MEDS: VITAMIN B-12 1000 MCG PO (08:11)
[2025-04-17] MEDS: NOVOLOG FLEXPEN-LOW RESISTANCE 1 UNITS SC (08:17)
--- NOTE | 2025-04-17 08:19 | W.PN.UPDATE ---
Update Note
Progress Note Update
s/p Right ankle ex fix removal
-Dressing changed, will need changes 3x per week, packing to 3 proximal pin sites
-Will need at least 2 weeks of anitbiotics for soft tissue coverage of cellilitis
-Toe touch weight bearing RLE for transfers
-PT/OT
-Follow up 2 weeks
--- NOTE | 2025-04-17 08:27 | W.PN.HOSP.TC ---
Today's Communication/Plan
-
See PN
Assessment / Plan
Assessment / Plan
70yoF with PMHx of DM, HTN, HLD, CAD, GERD, Hx of charkot joint R foot with midfoot dilocation s/p ORIF and external fixator in December 2024, discharged on oral Abx in March 2025, seen in Podiatry office with concern for pin tracyt infection, had
hardware removal with OI&D for abscesses seen along hardware, admitted for IV Abx pending Cx
A/P:
#R foot hardware SSTI with abscesses
Cefepime/Vanco pending Cx
Podiatry follows, s/p hardware removal and I&D on 04/16/25
#DM type 2 with neuropathy
Accuchecks, Insulin SS, cont Degludec/Aspart and Mounjaro, DM diet
HgbA1c pending
#EssentiL HTN
Losartan/HCTZ stopped on last admission due to hyponatremia
follow BP and restart as needed
#HLD
#CAD, stable
#B12 deficiency
#Vit D deficiency
#Cheonic anemia
#Glaucoma
outpatient anemia w/u
cont home meds
DVT ppx hep
FUll code
I have spent at least 56min reviewing chart, test results, communication with consultants and providing direct patient care
Anticipated Discharge: > 48 hours
Subjective/Interval History
-
Date of Service: April 17, 2025
Objective Data
-
Labs:
Laboratory Results
04/17/25
06:51
WBC 8.8
Hgb 9.4 L
Hct 29.0 L
Plt Count 288
Sodium 138
Potassium 4.2
Chloride 104
Carbon Dioxide 29
BUN 29 H
Creatinine 0.8
Glucose 186 H
Calcium 8.7
Vital Signs:
Vital Signs
Temp Pulse Resp BP Pulse Ox
97.7 F 64 16 140/53 96
04/17/25 07:24 04/17/25 07:24 04/17/25 07:24 04/17/25 07:24 04/17/25 07:24
I&O
04/16/25 04/17/25 04/18/25
06:59 06:59 06:59
Intake Total 1316 / 1316
Output Total 500 / 500
Balance 816 / 816
Review of Systems
-
History Source: Patient
All other systems: Reviewed and negative
Physical Exam
-
General: No Apparent Distress and Comfortable
Respiratory: Clear to Auscultation
Cardiac: Regular Rhythm
GI: Soft and Nondistended
Musculoskeletal: Other (RLE in cast)
Neuro: Awake, Alert, Oriented, AO x 3 and Other (b/l foot neuropathy with numbness, chronic, dorsalis pedis present on LLE, RLE toes worm and pt moving them)
Psych: Calm
--- NOTE | 2025-04-17 08:33 | PHA.VAN.FU ---
Vancomycin Assessment / Plan
- Assessment
Renal Function: Stable
WBC's are: WNL
In the past 24 hrs, patient has been: Afebrile
Concomitant Antimicrobials: cefepime
- Dosing Plan
Adjust Regimen to: Vanc 1500mg Q12H starting at 1800
New Regimen Predicts: AUC (463), Peak (29.1), Trough (11.7)
- Monitoring Plan
No level(s) ordered at this time: consider levels in next few days
- Follow Up
Pharmacy will continue to follow.
Vancomycin Follow UP
- -
Patient Age: 70
Patient Sex: Female
Vancomycin Day #: 2
Indication: Bone And Joint
Requesting Provider: Dr. Packer
Pertinent Antimicrobial Allergies:
Penicillins - Hives
levofloxacin - unknown
Height / Weight:
Height 5 ft 9 in
Actual Weight 133.356 kg
Pertinent Past Medical History: BMI ~43, DM 2
- Vital Signs / Lab Results
Temp Pulse Resp BP Pulse Ox
97.7 F 64 16 140/53 96
04/17/25 07:24 04/17/25 07:24 04/17/25 07:24 04/17/25 07:24 04/17/25 07:24
Lab Results - Hematology
04/16/25 04/17/25
16:38 06:51
WBC 9.4 8.8
Lab Results - Chemistry
04/16/25 04/17/25
16:38 06:51
BUN 26 H 29 H
Creatinine 0.8 0.8
Estimated Creat Clear 99 99
Microbiology Results
04/16/25 12:57 Gram Stain - Preliminary
Leg - Right
--- NOTE | 2025-04-17 09:52 | CM ---
CM following re: discharge planning.
Reviewed pt's chart met with pt.
Pt is a 70 year old female, admitted with primary dx of R foot hardware SSTI with abscesses. PMH includes: DM, HTN, HLD, CAD, GERD, Hx of Charcot joint R foot with midfoot dislocation s/p ORIF and external fixator in December 2024.
Pt reports she lives alone in a 2SH, 2 steps to enter, stays on the first floor. Pt reports she used to live with her mother and her sister brought her to [place] and placed to an ERIS.
Pt reports she ambulates with a walker, known to Dianna VÁSQUEZ. Pt reports she is admitted from [facility] where she was a few weeks. pt reports she is partial WB. Pt expressed her strong desire to return back to [facility] to continue
on skilled services.
PT and OT will evaluate the pt to determine a level of care at discharge.
A referral to [facility] made.
PCP: Sandrine Dunlap
Pharmacy: [facility]
D/C plan: [facility]
CM will follow with discharge plan updates as hospitalization progresses
--- NOTE | 2025-04-17 10:24 | PN.CDI ---
CDI
- -
CDI:
Physician Documentation Request
Admit Date: 04/16/25 11:03
Dear Doctor Birdie,
04/16 Operative Report: 'She presented for frame removal with small pin site tract abscesses in multiple locations and was brought to the operating room for removal and I and D in multiple planes...Purulent drainage was cultured'
04/17 Hospitalist PN: 'R foot hardware SSTI with abscesses'
Please clarify the following:
Cellulitis/abscesses is a complication of the surgery
Cellulitis/abscesses is unexpected but is NOT a complication of the surgery
Cellulitis/abscesses is an expected occurrence and is not a complication of surgery
Cellulitis/abscesses is inherent to/unavoidable during the surgery and is not a complication
Other
Use of terms such as suspected, likely, concern for, or probable (associated with a specific diagnosis that is being evaluated, monitored, or treated as if it exists) are acceptable and can be coded in the inpatient setting, when documented at the
time of discharge.
Thank you,
Melinda Velasquez RN, BSN
CDI Specialist
Available via [place] text
Please use your independent medical judgment in providing your response.
[2025-04-17 11:26] LABS: Glycohemoglobin (HgbA1c) 6.2 % (4.0-5.6)
[2025-04-17 11:58] LABS: Glucose - Point of Care 146 mg/dl (70-99)
[2025-04-17] MEDS: NOVOLOG FLEXPEN-LOW RESISTANCE SC ×2 (12:16→18:19)
[2025-04-17 17:24] LABS: Glucose - Point of Care 106 mg/dl (70-99)
[2025-04-17] MEDS: VANCOCIN 530 MG IV (17:34)
[2025-04-17 21:43] LABS: Glucose - Point of Care 162 mg/dl (70-99)
[2025-04-17] MEDS: LIPITOR 10 MG PO (21:55)
[2025-04-17] MEDS: LANTUS 0.4 UNITS SC (21:55)
[2025-04-17] MEDS: XALATAN OPHTHALMIC SOLUTION 1 DROP OPHTH (21:57)
[2025-04-17] MEDS: NORVASC 10 MG PO (22:00)
[2025-04-17] MEDS: TOPROL XL PO (22:08)
[2025-04-18] MEDS: STERILE WATER FOR INJECTION 10 ML IV ×3 (00:50→12:02)
[2025-04-18] MEDS: MAXIPIME 1000 MG IV ×3 (00:50→12:01)
[2025-04-18] MEDS: HEPARIN 5000 UNITS SC ×3 (00:53→18:45)
[2025-04-18] MEDS: TYLENOL 650 MG PO ×2 (03:48→11:58)
[2025-04-18] MEDS: VANCOCIN 530 MG IV (05:15)
[2025-04-18 05:25] LABS: Hematocrit 26.9 % (37.0-47.0); Hemoglobin 8.8 g/dL (12.0-16.0); Mean Corp Hgb Conc. 32.7 g/dL (33.0-37.0); Mean Corpuscular Volume 90.9 fL (81.0-99.0); Nucleated Red Blood Cells % 0 %; Platelet Count 270 10^3/uL (130-400); Red Cell Dist. Width 14.8 % (11.5-14.5)
[2025-04-18 05:47] LABS: ALT (SGPT) < 10 U/L (0-35); AST (SGOT) 12 U/L (14-36); Albumin 3.0 g/dl (3.5-5.0); Alkaline Phosphatase 75 U/L (38-126); Blood Urea Nitrogen 24 mg/dl (7-17); Calcium 8.7 mg/dl (8.4-10.2); Carbon Dioxide 29 mmol/L (22-30); Chloride 106 mmol/L (98-107); Estimated Creatinine Clearance 88 ml/min; Glucose 94 mg/dl (70-99); Potassium 3.9 mmol/L (3.5-5.1); Sodium 139 mmol/L (135-145); Total Protein 5.6 g/dl (6.3-8.2); eGFR > 60.00
[2025-04-18 07:15] VITALS: BP 127/66
[2025-04-18 07:59] LABS: Glucose - Point of Care 92 mg/dl (70-99)
[2025-04-18] MEDS: NOVOLOG FLEXPEN-LOW RESISTANCE SC ×3 (08:08→16:17)
--- NOTE | 2025-04-18 08:40 | PHA.VAN.FU ---
Vancomycin Assessment / Plan
- Assessment
Renal Function: Stable
WBC's are: WNL
In the past 24 hrs, patient has been: Afebrile
Concomitant Antimicrobials: CEFEPIME
- Dosing Plan
Continue: 1500MG Q12H
- Monitoring Plan
Peak Level: 04/19 @2130
Trough Level: 04/20 @0530
- Follow Up
Pharmacy will continue to follow.
Vancomycin Follow UP
- -
Patient Age: 70
Patient Sex: Female
Vancomycin Day #: 3
Indication: Bone And Joint
Requesting Provider: Dr. Packer
Pertinent Antimicrobial Allergies:
Penicillins - Hives
levofloxacin - unknown
Height / Weight:
Height 5 ft 9 in
Actual Weight 133.356 kg
Pertinent Past Medical History: BMI ~43, DM 2
- Vital Signs / Lab Results
Temp Pulse Resp BP Pulse Ox
98.0 F 62 16 127/66 99
04/18/25 07:15 04/18/25 07:15 04/18/25 07:15 04/18/25 07:15 04/18/25 07:15
Lab Results - Hematology
04/16/25 04/17/25 04/18/25
16:38 06:51 04:46
WBC 9.4 8.8 8.6
Lab Results - Chemistry
04/16/25 04/17/25 04/18/25
16:38 06:51 04:46
BUN 26 H 29 H 24 H
Creatinine 0.8 0.8 0.9
Estimated Creat Clear 99 99 88
Albumin 3.0 L
Microbiology Results
04/16/25 20:21 MRSA Screen - Final
Nose No Methicillin Resistant Staphylococcus aureus isolated.
04/16/25 12:57 Wound Culture - Preliminary
Leg - Right Staphylococcus aureus
Gram Stain - Preliminary
04/16/25 12:57 Anaerobic Culture - Preliminary
Leg - Right Culture pending. Anaerobic cultures are examined after 3
days incubation. Additional information to follow.
[2025-04-18] MEDS: NOVOLOG FLEXPEN 10 UNITS SC ×2 (09:31→12:00)
[2025-04-18] MEDS: NON-FORMULARY ITEM 7.5 MG SC (09:33)
[2025-04-18] MEDS: VITAMIN B-12 1000 MCG PO (09:40)
[2025-04-18] MEDS: ASPIR LOW (ENTERIC COATED) 81 MG PO (09:40)
[2025-04-18] MEDS: SENOKOT-S 1 TABLET PO ×3 (09:40→19:50)
[2025-04-18] MEDS: VITAMIN D3 (cholecalciferol) 50 MCG PO (09:41)
[2025-04-18] MEDS: OSCAL 500 + D 500 MG PO (09:41)
[2025-04-18] MEDS: PROTONIX 40 MG PO (09:41)
[2025-04-18] MEDS: MIRALAX 17 GRAMS PO (10:00)
--- NOTE | 2025-04-18 10:42 | CON.ID ---
Consultation
-
Date/Time Consultation Requested: 04/18/2025 0912
Date/Time Consultation Performed: 04/18/2025 1020
Requesting Provider: Dr. Orr
Performing Provider: Dr. Xiong
Reason for Consultation: Right foot infection
Chief Complaint / Past History
History of Present Illness
Radha Trujillo is a 70-year-old female being evaluated at the request of Dr. Orr regarding right foot infection. History is obtained from chart review, along with patient interview.
The patient has an underlying history of diabetes mellitus, along with a right foot Charcot joint. The patient developed a midfoot dislocation in December, and underwent external fixator placement on 01/26/2025. Thereafter, she was discharged to
rehab. While in rehab she developed a pin tract infection and was placed on Bactrim.
She presented to orthopedics on 03/04 in follow-up. After discussion with orthopedics regarding worsening pain and erythema, along with ongoing drainage of the area she was taken to the OR for pin exchange and external fixator adjustment, which was
performed on 03/09/2025. Thereafter, Bactrim was transitioned to doxycycline, to continue for an additional 10 days of therapy.
The patient was again seen in the Orthopedics office on 04/14. At that time, she reported ongoing pain and swelling at the pin site. Doxycycline was restarted, and the patient was admitted to the hospital. She underwent frame removal and I&D of
the pin tract, with the finding of an abscess. Cultures have revealed growth of MSSA, and Infectious Diseases is asked to comment upon further antimicrobial therapy.
Past History
Additional Past Medical History:
Diabetes mellitus with Charcot arthropathy
HTN
HLD
Morbid obesity (BMI = 43)
Additional Past Surgical History:
Right lower extremity Ex-Fix
Allergy History:
levofloxacin (From Levaquin) Allergy (Verified 04/16/25 10:37)
Per Facility
Penicillins Allergy (Verified 04/16/25 10:37)
Hives/Per Facility
Medications Reviewed: Yes
Current Antibiotics:
Vancomycin
Cefepime
Social History
Tobacco: Non-Smoker
Alcohol: None
Drug: None
Living: [facility]
Review of Systems
Vital Signs
Temp Pulse Resp BP Pulse Ox
98.0 F 62 16 127/66 99
04/18/25 07:15 04/18/25 07:15 04/18/25 07:15 04/18/25 07:15 04/18/25 07:15
Physical Exam
Physical Exam
Constitutional: No Acute Distress, Comfortable, Non-toxic and Obese
Eyes: No Conjunctival Hemorrhage and Sclera Anicteric
Oral: No Thrush and No Ulcers
Cardiovascular: Regular Rate and S1/S2; Negative S3/S4
Pulmonary: Clear; Negative Wheezes, Rales or Rhonchi
Gastrointestinal: Soft, Non Tender and Non Distended
Wound: Other (right leg with several wound with packing in place. )
Neurological: Awake and Alert
Psychological: Calm
.
Lab / Diagnostic Study Results
04/18/25 04:46
04/18/25 04:46
Abs Immat Gran (auto) 0.1 10^3/uL (0-0.05) H 04/18/25 04:46
Absolute Neuts (auto) 4.8 10^3/uL (1.4-6.5) 04/18/25 04:46
Absolute Lymphs (auto) 3.0 10^3/uL (1.2-3.4) 04/18/25 04:46
Absolute Monos (auto) 0.5 10^3/uL (0.1-0.6) 04/18/25 04:46
Absolute Basos (auto) 0.1 10^3/uL (0-0.2) 04/18/25 04:46
Immature Gran % 0.9 % (0-0.5) H 04/18/25 04:46
Neutrophils % 55.4 % (42.2-75.2) 04/18/25 04:46
Lymphocytes % 35.0 % (20.5-51.1) 04/18/25 04:46
Monocytes % 6.3 % (1.7-9.3) 04/18/25 04:46
Eosinophils % 1.7 % (0-6) 04/18/25 04:46
Basophils % 0.7 % (0-2) 04/18/25 04:46
Microbiology Results
Micro:
04/16/25 12:57 Wound Culture - Preliminary
Leg - Right S aureus-Methicillin Sensitive
Gram Stain - Preliminary
04/16/25 20:21 MRSA Screen - Final
Nose No Methicillin Resistant Staphylococcus aureus isolated.
04/16/25 12:57 Anaerobic Culture - Preliminary
Leg - Right Culture pending. Anaerobic cultures are examined after 3
days incubation. Additional information to follow.
Assessment / Plan
Right leg pin-tract infection; s/p Ex-Fix hardware removal
Cultures with MSSA
Diabetes mellitus with Charcot arthropathy
HTN
HLD
Recommendations:
Cultures with growth of MSSA. Further vancomycin can be discontinued.
Narrow antibiotics to cefazolin 2 gm IV q.8 hours. Hx PCN allergy noted; will follow for the development of any rash.
Discussed at length with patient regarding the possibility of a more deep-seated infection, (i.e. focal osteomyelitis) given that pins were embedded in the bone. Advised and counseled on length of therapy (i.e., between 2 to 6 weeks of
antibiotics). She is amenable to a longer course of antibiotics given the possibility of osteomyelitis.
[2025-04-18 11:55] LABS: Glucose - Point of Care 101 mg/dl (70-99)
--- NOTE | 2025-04-18 12:42 | W.PN.HOSP.TC ---
Today's Communication/Plan
-
pending final wound Cx
ID consult
follow CBC
Assessment / Plan
Assessment / Plan
70yoF with PMHx of DM, HTN, HLD, CAD, GERD, Hx of charkot joint R foot with midfoot dilocation s/p ORIF and external fixator in December 2024, discharged on oral Abx in March 2025, seen in Podiatry office with concern for pin tracyt infection, had
hardware removal with OI&D for abscesses seen along hardware, admitted for IV Abx pending Cx
A/P:
#R foot hardware SSTI with abscesses
Cefepime/Vanco
Podiatry follows, s/p hardware removal and I&D on 04/16/25
MSSA in Cx - ID for duration and selection of Abx
#DM type 2 with neuropathy
Accuchecks, Insulin SS, cont Degludec/Aspart and Mounjaro, DM diet
HgbA1c pending
#EssentiL HTN
Losartan/HCTZ stopped on last admission due to hyponatremia
follow BP and restart as needed
#Acute on chronic anemia
probably exacerbated by recent Sx
follow CBC
#HLD
#CAD, stable
#B12 deficiency
#Vit D deficiency
#Cheonic anemia
#Glaucoma
outpatient anemia w/u
cont home meds
DVT ppx hep
FUll code
I have spent at least 36min reviewing chart, test results, communication with consultants and providing direct patient care
Anticipated Discharge: 24 - 48 hours
Subjective/Interval History
-
Date of Service: April 18, 2025
Objective Data
-
Labs:
Laboratory Results
04/18/25
04:46
WBC 8.6
Hgb 8.8 L
Hct 26.9 L
Plt Count 270
Sodium 139
Potassium 3.9
Chloride 106
Carbon Dioxide 29
BUN 24 H
Creatinine 0.9
Glucose 94
Calcium 8.7
Total Bilirubin 0.3
AST 12 L
ALT < 10
Alkaline Phosphatase 75
Vital Signs:
Vital Signs
Temp Pulse Resp BP Pulse Ox
98.0 F 62 16 127/66 99
04/18/25 07:15 04/18/25 07:15 04/18/25 07:15 04/18/25 07:15 04/18/25 07:15
I&O
04/17/25 04/18/25 04/19/25
06:59 06:59 06:59
Intake Total 1316 / 1316 1620 / 1620 1613 / 1613
Output Total 500 / 500
Balance 816 / 816 1620 / 1620 1613 / 1613
Review of Systems
-
History Source: Patient
All other systems: Reviewed and negative
Physical Exam
-
General: No Apparent Distress
GI: Soft, Nontender and Nondistended
Skin: Warm
Neuro: Awake, Alert, Oriented and AO x 3
Psych: Calm
[2025-04-18 13:38] LABS: Glucose - Point of Care 67 mg/dl (70-99)
[2025-04-18 14:08] LABS: Glucose - Point of Care 93 mg/dl (70-99)
[2025-04-18 15:50] VITALS: BP 124/72
[2025-04-18] MEDS: ANCEF 10 IV (16:07)
[2025-04-18] MEDS: HEPARIN SC (16:07)
[2025-04-18 16:18] LABS: Glucose - Point of Care 90 mg/dl (70-99)
[2025-04-18 18:00] LABS: Glucose - Point of Care 98 mg/dl (70-99)
[2025-04-18] MEDS: NOVOLOG FLEXPEN SC (18:27)
[2025-04-18] MEDS: NOVOLOG FLEXPEN 8 UNITS SC (18:44)
--- NOTE | 2025-04-18 19:27 | PTCARENOTE ---
pt hypoglycemic today, protocol followed. Dr. Orr is aware. insulin orders adjusted. ID removed dressing, this nurse replaced using iodoform instead of Alginate....TT Dr. Packer to verify this was ok and is fine with change.
[2025-04-18 21:45] LABS: Glucose - Point of Care 95 mg/dl (70-99)
[2025-04-18] MEDS: NORVASC 10 MG PO (22:20)
[2025-04-18] MEDS: XALATAN OPHTHALMIC SOLUTION 1 DROP OPHTH (22:20)
[2025-04-18] MEDS: LIPITOR 10 MG PO (22:20)
[2025-04-18] MEDS: TOPROL XL PO (22:20)
[2025-04-18] MEDS: LANTUS 0.3 UNITS SC (22:24)
[2025-04-18 23:14] VITALS: BP 121/47
[2025-04-19] MEDS: ANCEF 10 IV ×4 (00:15→23:19)
[2025-04-19] MEDS: HEPARIN 5000 UNITS SC ×4 (00:15→23:19)
[2025-04-19] MEDS: ROXICODONE 5 MG PO (00:45)
[2025-04-19 03:22] LABS: Glucose - Point of Care 97 mg/dl (70-99)
[2025-04-19 06:30] LABS: Hematocrit 30.1 % (37.0-47.0); Hemoglobin 9.7 g/dL (12.0-16.0); Mean Corp Hgb Conc. 32.2 g/dL (33.0-37.0); Mean Corpuscular Volume 91.2 fL (81.0-99.0); Nucleated Red Blood Cells % 0.2 %; Platelet Count 287 10^3/uL (130-400); Red Cell Dist. Width 14.9 % (11.5-14.5)
[2025-04-19 07:21] VITALS: BP 128/73
[2025-04-19 07:41] LABS: Glucose - Point of Care 118 mg/dl (70-99)
[2025-04-19] MEDS: NOVOLOG FLEXPEN-LOW RESISTANCE SC ×3 (08:31→17:26)
[2025-04-19] MEDS: MIRALAX 17 GRAMS PO (09:29)
[2025-04-19] MEDS: OSCAL 500 + D 500 MG PO (09:33)
[2025-04-19] MEDS: PROTONIX 40 MG PO (09:33)
[2025-04-19] MEDS: VITAMIN B-12 1000 MCG PO (09:33)
[2025-04-19] MEDS: ASPIR LOW (ENTERIC COATED) 81 MG PO (09:33)
[2025-04-19] MEDS: VITAMIN D3 (cholecalciferol) 50 MCG PO (09:33)
[2025-04-19] MEDS: SENOKOT-S 1 TABLET PO ×2 (09:33→20:26)
[2025-04-19] MEDS: NOVOLOG FLEXPEN 8 UNITS SC ×3 (09:34→18:27)
[2025-04-19] MEDS: TYLENOL 650 MG PO (09:34)
--- NOTE | 2025-04-19 11:34 | W.PN.ID1 ---
Date of Service
Date of Service: April 19, 2025
Today's Communication
Continue antibiotics.
Assessment / Plan
Right leg pin-tract infection; s/p Ex-Fix hardware removal
Cultures with MSSA
Diabetes mellitus with Charcot arthropathy
HTN
HLD
Recommendations:
Cultures with growth of MSSA.
Continue cefazolin 2 gm IV q.8 hours. Hx PCN allergy noted; will follow for the development of any rash.
Discussed at length with patient regarding the possibility of a more deep-seated infection, (i.e. focal osteomyelitis) given that pins were embedded in the bone.
Advised and counseled on length of therapy (i.e., between 2 to 6 weeks of antibiotics). She is amenable to a longer course of antibiotics (i.e. 6 weeks) given the possibility of osteomyelitis.
����������������������������������������������������������
Chief Complaint
-: Other (Right leg pin tract infection)
Subjective / Review of Systems
Review of Systems: No Fever and No Chills
Vital Signs / Physical Exam
Vital Signs
Vital Signs
Temp Pulse Resp BP Pulse Ox
97.9 F 57 16 128/73 97
04/19/25 07:21 04/19/25 07:21 04/19/25 07:21 04/19/25 07:21 04/19/25 07:21
Physical Exam
Constitutional: No Acute Distress, Comfortable and Non-toxic
Eyes: Sclera Anicteric
Pulmonary: Non Labored
Extremities: Other (Right leg dressed in Luis wrap. 2+ edema.)
Wound: Other (Prior pin sites dressed.)
Neurological: Awake and Alert
Objective Data
Lab Data
Lab Results
04/19/25 04:47
04/18/25 04:46
Estimated Creat Clear 88 ml/min 04/18/25 04:46
Total Bilirubin 0.3 mg/dl (0.2-1.3) 04/18/25 04:46
AST 12 U/L (14-36) L 04/18/25 04:46
ALT < 10 U/L (0-35) 04/18/25 04:46
Alkaline Phosphatase 75 U/L (38-126) 04/18/25 04:46
Most recent labs reviewed.
Micro Results:
04/16/25 12:57 Wound Culture - Preliminary
Leg - Right S aureus-Methicillin Sensitive
Gram Stain - Preliminary
04/16/25 20:21 MRSA Screen - Final
Nose No Methicillin Resistant Staphylococcus aureus isolated.
04/16/25 12:57 Anaerobic Culture - Preliminary
Leg - Right Culture pending. Anaerobic cultures are examined after 3
days incubation. Additional information to follow.
[2025-04-19 11:59] LABS: Glucose - Point of Care 103 mg/dl (70-99)
--- NOTE | 2025-04-19 12:09 | W.PN.HOSP.TC ---
Today's Communication/Plan
-
cont ancef, pending final wound Cx
Assessment / Plan
Assessment / Plan
70yoF with PMHx of DM, HTN, HLD, CAD, GERD, Hx of charkot joint R foot with midfoot dilocation s/p ORIF and external fixator in December 2024, discharged on oral Abx in March 2025, seen in Podiatry office with concern for pin tracyt infection, had
hardware removal with OI&D for abscesses seen along hardware, admitted for IV Abx pending Cx
A/P:
#R foot hardware SSTI with abscesses, cannot r/o OM
Podiatry follows, s/p hardware removal and I&D on 04/16/25
MSSA in Cx - ID recommended 6 weeks of Abx in view of possibility of deep seated infection
Ancef started on 04/18/25
Will discuss MRI RLE with ID and Podiatry
#DM type 2 with neuropathy
Accuchecks, Insulin SS, cont Degludec/Aspart and Mounjaro, DM diet
HgbA1c pending
#Essential HTN
Losartan/HCTZ stopped on last admission due to hyponatremia
follow BP and restart as needed
#Acute on chronic anemia
probably exacerbated by recent Sx
follow CBC
#HLD
#CAD, stable
#B12 deficiency
#Vit D deficiency
#Cheonic anemia
#Glaucoma
outpatient anemia w/u
cont home meds
#Dry eyes
Eye drops
DVT ppx hep
FUll code
I have spent at least 36min reviewing chart, test results, communication with consultants and providing direct patient care
Anticipated Discharge: > 48 hours
Subjective/Interval History
-
Date of Service: April 19, 2025
Objective Data
-
Labs:
Laboratory Results
04/19/25
04:47
WBC 8.2
Hgb 9.7 L
Hct 30.1 L
Plt Count 287
Vital Signs:
Vital Signs
Temp Pulse Resp BP Pulse Ox
97.9 F 57 16 128/73 97
04/19/25 07:21 04/19/25 07:21 04/19/25 07:21 04/19/25 07:21 04/19/25 07:21
I&O
04/18/25 04/19/25 04/20/25
06:59 06:59 06:59
Intake Total 1620 / 1620 3113 / 3113 480 / 480
Output Total 1200 / 1200
Balance 1620 / 1620 1913 / 1913 480 / 480
Review of Systems
-
History Source: Patient
All other systems: Reviewed and negative
Physical Exam
-
General: No Apparent Distress
HEENT: Normocephalic
Cardiac: Regular Rhythm
GI: Soft, Nontender and Nondistended
Musculoskeletal: Other (RLE in cast)
[2025-04-19] MEDS: REFRESH EYE DROPS (PF) 1 DROPS BOTH EYES (13:12)
[2025-04-19 15:30] VITALS: BP 125/82
[2025-04-19 17:00] VITALS: BP 159/80
[2025-04-19 17:01] LABS: Glucose - Point of Care 105 mg/dl (70-99)
[2025-04-19] MEDS: DULCOLAX 10 MG RECTAL (18:28)
[2025-04-19] MEDS: MILK OF MAGNESIA 30 ML PO (20:34)
[2025-04-19] MEDS: LANTUS 0.3 UNITS SC (21:35)
[2025-04-19 21:36] LABS: Glucose - Point of Care 150 mg/dl (70-99)
[2025-04-19] MEDS: NORVASC 10 MG PO (21:36)
[2025-04-19] MEDS: LIPITOR 10 MG PO (21:36)
[2025-04-19] MEDS: XALATAN OPHTHALMIC SOLUTION 1 DROP OPHTH (21:37)
[2025-04-19] MEDS: TOPROL XL 25 MG PO (21:38)
[2025-04-19 23:00] VITALS: BP 157/61
[2025-04-20 07:20] VITALS: BP 154/58
[2025-04-20 07:20] LABS: Glucose - Point of Care 147 mg/dl (70-99)
[2025-04-20] MEDS: ASPIR LOW (ENTERIC COATED) 81 MG PO (08:44)
[2025-04-20] MEDS: VITAMIN B-12 1000 MCG PO (08:44)
[2025-04-20] MEDS: PROTONIX 40 MG PO (08:44)
[2025-04-20] MEDS: NOVOLOG FLEXPEN-LOW RESISTANCE SC ×2 (08:45→11:19)
[2025-04-20] MEDS: OSCAL 500 + D 500 MG PO (08:45)
[2025-04-20] MEDS: HEPARIN 5000 UNITS SC ×3 (08:45→23:15)
[2025-04-20] MEDS: VITAMIN D3 (cholecalciferol) 50 MCG PO (08:45)
[2025-04-20] MEDS: NOVOLOG FLEXPEN 8 UNITS SC ×3 (08:46→17:49)
[2025-04-20] MEDS: ANCEF 10 IV ×3 (08:46→23:16)
[2025-04-20] MEDS: MIRALAX 17 GRAMS PO (08:50)
[2025-04-20 09:26] LABS: Hematocrit 32.6 % (37.0-47.0); Hemoglobin 10.7 g/dL (12.0-16.0)
[2025-04-20 09:57] LABS: Blood Urea Nitrogen 15 mg/dl (7-17); Calcium 9.3 mg/dl (8.4-10.2); Carbon Dioxide 31 mmol/L (22-30); Chloride 105 mmol/L (98-107); Estimated Creatinine Clearance 113 ml/min; Glucose 136 mg/dl (70-99); Magnesium 2.2 mg/dl (1.6-2.3); Potassium 4.2 mmol/L (3.5-5.1); Sodium 138 mmol/L (135-145); eGFR > 60.00
[2025-04-20 10:07] VITALS: BP 151/62; PULSE 60
[2025-04-20 10:20] VITALS: BP 151/62; PULSE 60
[2025-04-20] MEDS: SENOKOT-S PO (10:28)
[2025-04-20 11:11] LABS: Glucose - Point of Care 110 mg/dl (70-99)
--- NOTE | 2025-04-20 11:23 | W.PN.ID1 ---
Date of Service
Date of Service: April 20, 2025
Today's Communication
Continue with 6 weeks cefazolin.
Assessment / Plan
Right leg pin-tract infection; s/p Ex-Fix hardware removal
Cultures with MSSA
Diabetes mellitus with Charcot arthropathy
HTN
HLD
Recommendations:
Right lower extremity cultures with growth of MSSA.
Continue cefazolin 2 gm IV q.8 hours. Hx PCN allergy noted; will follow for the development of any rash.
Discussed at length with patient regarding the possibility of a more deep-seated infection, (i.e. focal osteomyelitis) given that pins were embedded in the bone.
Advised and counseled on length of therapy (i.e., between 2 to 6 weeks of antibiotics). She is amenable to a longer course of antibiotics (i.e. 6 weeks) given the possibility of osteomyelitis.
����������������������������������������������������������
Chief Complaint
-: Other (Right leg pin tract infection)
Subjective / Review of Systems
Patient seen and examined. Reports no issues with the antibiotics.
Review of Systems: No Fever and No Chills
Vital Signs / Physical Exam
Vital Signs
Vital Signs
Temp Pulse Resp BP Pulse Ox
98.2 F 59 16 154/58 97
04/20/25 07:20 04/20/25 07:20 04/20/25 07:20 04/20/25 07:20 04/20/25 08:44
Physical Exam
Constitutional: No Acute Distress, Comfortable and Non-toxic
Eyes: Sclera Anicteric
Pulmonary: Non Labored
Extremities: Other (Right leg dressed in Luis wrap. 2+ edema.)
Wound: Other (Right lower extremity pin sites dressed. No strikethrough)
Neurological: Awake and Alert
Objective Data
Lab Data
Lab Results
04/20/25 09:17
04/20/25 09:17
Estimated Creat Clear 113 ml/min 04/20/25 09:17
Total Bilirubin 0.3 mg/dl (0.2-1.3) 04/18/25 04:46
AST 12 U/L (14-36) L 04/18/25 04:46
ALT < 10 U/L (0-35) 04/18/25 04:46
Alkaline Phosphatase 75 U/L (38-126) 04/18/25 04:46
Most recent labs reviewed.
Micro Results:
04/16/25 12:57 Anaerobic Culture - Preliminary
Leg - Right NO ANAEROBES ISOLATED
04/16/25 12:57 Wound Culture - Preliminary
Leg - Right S aureus-Methicillin Sensitive
Gram Stain - Preliminary
04/16/25 20:21 MRSA Screen - Final
Nose No Methicillin Resistant Staphylococcus aureus isolated.
Wound/abscess/other Cult Preliminary 04/16/25
Few S aureus-Methicillin Sensitive
Organism 1 S aureus-Methicillin Sensitive
1. S aureus-Methicillin Sensitive
M.I.C. RX
--------- ---
Amoxicillin/Potas. Clavulanate <=4/2 S
Ampicillin <=2 R
Clindamycin <=0.5 R
This isolate is presumed to be resistant based on the
detection of inducible clindamycin resistance. Clindamycin
may still be effective in some patients.
Gentamicin <=4 S
Erythromycin >4 R
Levofloxacin <=1 S
Oxacillin <=0.25 S
Tetracycline <=4 S
Trimethoprim/Sulfamethoxazole <=0.5/9.5 S
Vancomycin 1 S
--- NOTE | 2025-04-20 11:28 | W.PN.HOSP.TC ---
Today's Communication/Plan
-
PICC placed
medically stable for d/c to STR - CM informed
Assessment / Plan
Assessment / Plan
70yoF with PMHx of DM, HTN, HLD, CAD, GERD, Hx of charkot joint R foot with midfoot dilocation s/p ORIF and external fixator in December 2024, discharged on oral Abx in March 2025, seen in Podiatry office with concern for pin tracyt infection, had
hardware removal with OI&D for abscesses seen along hardware, admitted for IV Abx. MSSA in woundCx with ID concerned for deep seated infection.
A/P:
#R foot hardware SSTI with abscesses, cannot r/o OM
Podiatry follows, s/p hardware removal and I&D on 04/16/25
MSSA in Cx - ID recommended 6 weeks of Abx in view of possibility of deep seated infection
Ancef started on 04/18/25
no need for MRI RLE as discussed with ID and Podiatry - due to concern for deep seated infection will need 6 weeks of Abx anyway. No extension of infection to the bone seen during surgery as per podiatry
#DM type 2 with neuropathy
Accuchecks, Insulin SS, cont Degludec/Aspart and Mounjaro, DM diet
HgbA1c pending
#Essential HTN
HCTZ stopped on last admission due to hyponatremia
cont Losartan
follow BP and restart as needed
#Acute on chronic anemia
probably exacerbated by recent Sx
follow CBC
#HLD
#CAD, stable
#B12 deficiency
#Vit D deficiency
#Cheonic anemia
#Glaucoma
outpatient anemia w/u
cont home meds
#Dry eyes
Eye drops
DVT ppx hep
FUll code
I have spent at least 36min reviewing chart, test results, communication with consultants and providing direct patient care
Anticipated Discharge: Within 24 hours
Subjective/Interval History
-
Date of Service: April 20, 2025
Objective Data
-
Labs:
Laboratory Results
04/20/25
09:17
Hgb 10.7 L
Hct 32.6 L
Sodium 138
Potassium 4.2
Chloride 105
Carbon Dioxide 31 H
BUN 15
Creatinine 0.7
Glucose 136 H
Calcium 9.3
Vital Signs:
Vital Signs
Temp Pulse Resp BP Pulse Ox
98.2 F 59 16 154/58 97
04/20/25 07:20 04/20/25 07:20 04/20/25 07:20 04/20/25 07:20 04/20/25 08:44
I&O
04/19/25 04/20/25 04/21/25
06:59 06:59 06:59
Intake Total 3113 / 3113 2640 / 2640
Output Total 1200 / 1200
Balance 1912 / 1912 2640 / 2640
Review of Systems
-
History Source: Patient
All other systems: Reviewed and negative
Physical Exam
-
General: No Apparent Distress
HEENT: Normocephalic
Respiratory: Clear to Auscultation
GI: Soft, Nontender and Nondistended
Skin: Warm
Neuro: Awake, Alert, Oriented and AO x 3
Psych: Calm
--- NOTE | 2025-04-20 11:38 | W.DCSUMMARY ---
Addendum entered and electronically signed by Robinson Orr MD 04/22/25 16:30:
Acute blood loss anemia 2/2 surgery with chronic B12 deficiency anemia
Addendum entered and electronically signed by Robinson Orr MD 04/21/25 10:06:
Constipation resolved, patient discharged on 04/21/25
Original Note:
Discharge Summary
Discharge Data
Date of Admission: 04/16/25
Date of Discharge: 04/20/25
-
Pending Results: No
Hospital Course
70yoF with PMHx of DM, HTN, HLD, CAD, GERD, Hx of charkot joint R foot with midfoot dilocation s/p ORIF and external fixator in December 2024, discharged on oral Abx in March 2025, seen in Podiatry office with concern for pin tracyt infection, had
hardware removal with OI&D for abscesses seen along hardware, admitted for IV Abx. MSSA in woundCx with ID concerned for deep seated infection. PICC placed and Ancef IV to cont till 05/29/25. With episode of hypoglycemia basal/bolus insulin dosage
was decreased. Medically stable to return to rehab
I have spent at least 36min reviewing chart, test results, communication with consultants and providing direct patient care
Patient was managed for:
#R foot hardware SSTI with abscesses, cannot r/o OM
#DM type 2 with neuropathy
#Essential HTN
#Acute on chronic anemia
#HLD
#CAD, stable
#B12 deficiency
#Vit D deficiency
#Chronic anemia
#Glaucoma
Discharge Plan
-
Patient Disposition: Jail/SNF
Discharge Diagnosis/Procedures: RLE hardware infection
Diet: Diabetic, Carb Controlled
Driving Restrictions: As prior to admission
Referrals:
UNKNOWN - PT NOT,INTERVIEWE [Family Provider]
Prescriptions:
New
cefazolin 10 gram Recon Soln
2 g IV Q8H 42 Days Qty: 0 0RF
polyethylene glycol 3350 17 gram Powder In Packet
17 g PO DAILY Qty: 30 0RF
Rx Instructions:
stop if 2 or more BM per day
losartan 25 mg Tablet
25 mg PO DAILY Qty: 30 0RF
Refresh Classic (PF) 1.4-0.6 % Dropperette
1 drp BOTH EYES QIDPRN PRN (Reason: dry eyes) Qty: 30 0RF
Continued
latanoprost 0.005 % Drops
1 drp OPHTHALMIC (EYE) HS
Rx Instructions:
BOTH EYES
simvastatin 10 mg Tablet
10 mg PO HS
cyanocobalamin (vitamin B-12) 1,000 mcg Tablet
1,000 mcg PO DAILY
amlodipine 10 mg Tablet
10 mg PO HS
metoprolol succinate 25 mg Tablet Extended Release 24 Hr
25 mg PO HS
multivit with min-folic acid [One-A-Day Women's 50 Plus] 0.4 mg Tablet
1 tab PO DAILY
cholecalciferol (vitamin D3) [Vitamin D3] 50 mcg (2,000 unit) Capsule
50 mcg PO DAILY
Caltrate 600 plus D 600 mg-20 mcg (800 unit) Tablet,Chewable
1 tab PO DAILY
Mounjaro 7.5 mg/0.5 mL Pen Injector
7.5 mg SC SA
sennosides-docusate sodium [Senexon-S] 8.6-50 mg Tablet
1 tab-cap PO BID
pantoprazole [Protonix] 40 mg Tablet,Delayed Release (Dr/Ec)
40 mg PO DAILY
aspirin 81 mg Tablet,Delayed Release (Dr/Ec)
81 mg PO DAILY Qty: 0 0RF
acetaminophen [Tylenol Extra Strength] 500 mg tablet
500 mg PO Q6HPRN PRN (Reason: pain)
Changed
insulin aspart U-100 100 unit/mL (3 mL) Insulin Pen
8 unit SC MEALS Qty: 0 0RF
insulin degludec [Tresiba FlexTouch U-200] 200 unit/mL (3 mL) Insulin Pen
30 unit SC HS Qty: 0 0RF
Patient Comments:
pt took a amaller dose last pm- 32 units
Rx Instructions:
Hold of BS<120
Discontinued
losartan-hydrochlorothiazide 100-25 mg Tablet
1 tab PO DAILY
doxycycline hyclate 100 mg Capsule
100 mg PO Q12 Qty: 20 0RF
Discharge Orders:
Discharge Patient (As Directed); Ordered 04/20/25
Ordered By: Robinson Orr
Discharge Date and Time
Print Language: SUDANESE
[2025-04-20] MEDS: COZAAR 25 MG PO (12:33)
--- NOTE | 2025-04-20 13:09 | CM ---
Addendum entered by Paulina Ruiz 04/20/25 15:58:
D/c cancelled. Plan d/c to [facility] when stable, ambulance auth approved until 04/22. Several calls left to [facility] to provide update, no response.
Original Note:
CM reviewed chart, spoke with liaison from [facility]- able to accept patient for STR, aware patient on IV antibiotics. Clinicals faxed to [facility]. Patient seen bedside, aware stable for d.c and agreeable to [facility], will require
ambulance transport. Patient reports she has not had a BM and would like to have one prior to d/c. IMM verbally reviewed, provided with copy, placed in chart. Call to [employer]- auth obtained: 04/20-04/24, next review 04/24, auth #[id number],
ambulance auth #[id number], call for updates .
Plan: [facility], ambulance transport
[facility]
Report: [phone] ext [phone]
[2025-04-20 15:20] VITALS: BP 184/72
--- NOTE | 2025-04-20 15:45 | W.PN.UPDATE ---
Update Note
Progress Note Update
significant constipation: patient reports no BM for 5 days. Abd not acute
check XR abd
Enema
Laxatives
Hold D/C
[2025-04-20] MEDS: SENOKOT-S 1 TABLET PO (16:22)
[2025-04-20] MEDS: FLUSH (NSS) 1 FLUSH IV (16:23)
[2025-04-20] MEDS: FLEET MINERAL OIL ENEMA 133 ML RECTAL (16:34)
[2025-04-20] MEDS: NOVOLOG FLEXPEN-LOW RESISTANCE 1 UNITS SC (17:49)
[2025-04-20 17:50] LABS: Glucose - Point of Care 157 mg/dl (70-99)
[2025-04-20] MEDS: MILK OF MAGNESIA 30 ML PO (20:34)
[2025-04-20 21:07] LABS: Glucose - Point of Care 154 mg/dl (70-99)
[2025-04-20] MEDS: LIPITOR 10 MG PO (21:13)
[2025-04-20] MEDS: NORVASC 10 MG PO (21:13)
[2025-04-20] MEDS: XALATAN OPHTHALMIC SOLUTION 1 DROP OPHTH (21:14)
[2025-04-20] MEDS: LANTUS 0.3 UNITS SC (21:14)
[2025-04-20] MEDS: TOPROL XL 25 MG PO (21:14)
[2025-04-20 22:42] VITALS: BP 141/57
--- NOTE | 2025-04-21 02:23 | DOWNTIME ---
There was a [facility] Client Obstetric Assistant Downtime on 04/21/2025 from 0100 to 04/21/2025 at 0220. Downtime documentation of patient's care, including medication administrations, has been reconciled in the electronic record per guidelines. Refer to the
patient's paper chart under the miscellaneous tab to see printed paper medication records and downtime forms.
[2025-04-21 07:25] VITALS: BP 163/61
[2025-04-21 07:37] LABS: Glucose - Point of Care 107 mg/dl (70-99)
[2025-04-21] MEDS: MIRALAX 17 GRAMS PO (08:02)
[2025-04-21] MEDS: VITAMIN D3 (cholecalciferol) 50 MCG PO (08:03)
[2025-04-21] MEDS: ASPIR LOW (ENTERIC COATED) 81 MG PO (08:03)
[2025-04-21] MEDS: COZAAR 25 MG PO (08:03)
[2025-04-21] MEDS: PROTONIX 40 MG PO (08:03)
[2025-04-21] MEDS: ANCEF 10 IV ×2 (08:03→16:20)
[2025-04-21] MEDS: VITAMIN B-12 1000 MCG PO (08:03)
[2025-04-21] MEDS: SENOKOT-S 1 TABLET PO (08:03)
[2025-04-21] MEDS: OSCAL 500 + D 500 MG PO (08:03)
[2025-04-21] MEDS: NOVOLOG FLEXPEN-LOW RESISTANCE SC ×2 (08:04→13:07)
[2025-04-21] MEDS: NOVOLOG FLEXPEN 8 UNITS SC ×3 (08:04→17:50)
[2025-04-21] MEDS: HEPARIN 5000 UNITS SC ×2 (08:05→16:21)
[2025-04-21] MEDS: FLUSH (NSS) 2 FLUSH IV ×2 (08:10→16:21)
--- NOTE | 2025-04-21 10:04 | W.PN.HOSP.TC ---
Today's Communication/Plan
-
dc
Assessment / Plan
Assessment / Plan
70yoF with PMHx of DM, HTN, HLD, CAD, GERD, Hx of charkot joint R foot with midfoot dilocation s/p ORIF and external fixator in December 2024, discharged on oral Abx in March 2025, seen in Podiatry office with concern for pin tracyt infection, had
hardware removal with OI&D for abscesses seen along hardware, admitted for IV Abx. MSSA in woundCx with ID concerned for deep seated infection.
A/P:
#R foot hardware SSTI with abscesses, cannot r/o OM
Podiatry follows, s/p hardware removal and I&D on 04/16/25
MSSA in Cx - ID recommended 6 weeks of Abx in view of possibility of deep seated infection
Ancef started on 04/18/25
no need for MRI RLE as discussed with ID and Podiatry - due to concern for deep seated infection will need 6 weeks of Abx anyway. No extension of infection to the bone seen during surgery as per podiatry
#DM type 2 with neuropathy
Accuchecks, Insulin SS, cont Degludec/Aspart and Mounjaro, DM diet
HgbA1c pending
#Essential HTN
HCTZ stopped on last admission due to hyponatremia
cont Losartan
follow BP and restart as needed
#Acute on chronic anemia
probably exacerbated by recent Sx
follow CBC
#Constipation
resolved
#HLD
#CAD, stable
#B12 deficiency
#Vit D deficiency
#Cheonic anemia
#Glaucoma
outpatient anemia w/u
cont home meds
#Dry eyes
Eye drops
DVT ppx hep
FUll code
I have spent at least 36min reviewing chart, test results, communication with consultants and providing direct patient care
Anticipated Discharge: Today
Subjective/Interval History
-
Date of Service: April 21, 2025
Objective Data
-
Vital Signs:
Vital Signs
Temp Pulse Resp BP Pulse Ox
98.1 F 60 18 163/61 98
04/21/25 07:25 04/21/25 07:25 04/21/25 07:25 04/21/25 07:25 04/21/25 07:25
I&O
04/20/25 04/21/25 04/22/25
06:59 06:59 06:59
Intake Total 2640 / 2640 3066 / 3066
Balance 2640 / 2640 3066 / 3066
Review of Systems
-
History Source: Patient
All other systems: Reviewed and negative
Physical Exam
-
General: No Apparent Distress
Neuro: Awake, Alert, Oriented and AO x 3
Psych: Calm
--- NOTE | 2025-04-21 10:31 | CM ---
Addendum entered by Dulce Sosa 04/21/25 14:33:
patient car pick up driver for ambulance is [phone]. CM will call to update facility.
Addendum entered by Dulce Sosa 04/21/25 11:55:
Received call with confirmation for patient to go to [facility] and auth information provided to social media project manager. Pending ambulance time. Facility requested patient come after dose of IV antibiotic.
Plan; discharge to SNF
Addendum entered by Dulce Sosa 04/21/25 11:45:
Pending confirmation from Facility left another message and updated nursing unit clerk.
Original Note:
Patient seen at bedside on . Per prior CM auth in place; Personal [employer]- auth obtained: 04/20-04/24, next review 04/24, auth #[id number], ambulance auth #[id number], call for updates . CM called to [facility] and VM left
with Production Support Engineer and nursing, awaiting call back. CM will continue to follow for discharge planning needs.
Plan: [facility], ambulance transport
[facility]
Report: [phone] ext [phone]
--- NOTE | 2025-04-21 10:40 | W.PN.UPDATE ---
Update Note
Progress Note Update
Query Response:
Cellulitis/abscesses is a complication of surgery
--- NOTE | 2025-04-21 11:20 | W.PN.ID1 ---
Date of Service
Date of Service: April 21, 2025
Today's Communication
Continue abx.
Assessment / Plan
Right leg pin-tract infection; s/p Ex-Fix hardware removal
Cultures with MSSA
Diabetes mellitus with Charcot arthropathy
HTN
HLD
Recommendations:
Right lower extremity pin tract cultures with growth of MSSA.
--> Continue cefazolin 2 gm IV q.8 hours through 05/28/25
--> Check weekly CBC with diff / BMP. Please fax to [place] office ([phone])
����������������������������������������������������������
Chief Complaint
-: Other (Right leg pin tract infection)
Subjective / Review of Systems
Review of Systems: No Fever and No Chills
Vital Signs / Physical Exam
Vital Signs
Vital Signs
Temp Pulse Resp BP Pulse Ox
98.1 F 60 18 163/61 98
04/21/25 07:25 04/21/25 07:25 04/21/25 07:25 04/21/25 07:25 04/21/25 07:25
Physical Exam
Constitutional: No Acute Distress, Comfortable and Non-toxic
Eyes: Sclera Anicteric
Pulmonary: Non Labored
Extremities: Edema (RLE), Erythema (Lateral RLE) and Other (Right leg dressed in Luis wrap. 2+ edema.)
Wound: Other (Right lower extremity pin sites dressed. No strikethrough. No significant drainage. )
Neurological: Awake and Alert
Objective Data
Lab Data
Lab Results
04/20/25 09:17
04/20/25 09:17
Estimated Creat Clear 113 ml/min 04/20/25 09:17
Total Bilirubin 0.3 mg/dl (0.2-1.3) 04/18/25 04:46
AST 12 U/L (14-36) L 04/18/25 04:46
ALT < 10 U/L (0-35) 04/18/25 04:46
Alkaline Phosphatase 75 U/L (38-126) 04/18/25 04:46
Most recent labs reviewed.
Micro Results:
04/16/25 12:57 Anaerobic Culture - Preliminary
Leg - Right NO ANAEROBES ISOLATED
04/16/25 12:57 Wound Culture - Preliminary
Leg - Right S aureus-Methicillin Sensitive
Gram Stain - Preliminary
04/16/25 20:21 MRSA Screen - Final
Nose No Methicillin Resistant Staphylococcus aureus isolated.
Wound/abscess/other Cult Preliminary 04/16/25
Few S aureus-Methicillin Sensitive
Organism 1 S aureus-Methicillin Sensitive
1. S aureus-Methicillin Sensitive
M.I.C. RX
--------- ---
Amoxicillin/Potas. Clavulanate <=4/2 S
Ampicillin <=2 R
Clindamycin <=0.5 R
This isolate is presumed to be resistant based on the
detection of inducible clindamycin resistance. Clindamycin
may still be effective in some patients.
Gentamicin <=4 S
Erythromycin >4 R
Levofloxacin <=1 S
Oxacillin <=0.25 S
Tetracycline <=4 S
Trimethoprim/Sulfamethoxazole <=0.5/9.5 S
Vancomycin 1 S
[2025-04-21 12:25] LABS: Glucose - Point of Care 148 mg/dl (70-99)
[2025-04-21 15:30] VITALS: BP 136/58
[2025-04-21 16:56] LABS: Glucose - Point of Care 178 mg/dl (70-99)
[2025-04-21] MEDS: NOVOLOG FLEXPEN-LOW RESISTANCE 1 UNITS SC (17:49)
[2025-04-21] MEDS: SENOKOT-S PO (17:49)
--- NOTE | 2025-04-22 09:52 | CM ---
CM called to facility and confirmed Fax number [phone]. Patient nurse at [facility] indicated that they do have the clinical discharge information in hand.
--- NOTE | 2025-04-22 15:24 | PN.CDI ---
CDI
- -
CDI:
Physician Documentation Request
Admit Date: 04/16/25 11:03
Dear Doctor Kirby,
Patient admitted with hardware infection.
04/21 Hospitalist PN: 'Acute on chronic anemia, probably exacerbated by recent Sx, follow CBC...B12 deficiency'
Laboratory Tests
04/16/25 04/17/25 04/18/25
16:38 06:51 04:46
Hgb 10.1 L 9.4 L 8.8 L
Based on the above, could you clarify, in your progress note, which of the following is the most likely type of anemia you are evaluating, monitoring and/or treating?
Acute blood loss anemia with baseline chronic anemia (Specify type)
Anemia of chronic disease - indicate if neoplastic disease, CKD or other
Chronic iron deficiency anemia due to blood loss
Vitamin B deficiency anemia - indicate3 etiology, such as intrinsic factor deficiency, malabsorption, transcobalamin II deficiency, dietary etc.
Folate deficiency anemia - indicate etiology, such as dietary, drug induced etc.
Protein deficiency anemia
Other
Use of terms such as suspected, likely, concern for, or probable (associated with a specific diagnosis that is being evaluated, monitored, or treated as if it exists) are acceptable and can be coded in the inpatient setting, when documented at the
time of discharge.
Thank you,
Melinda Velasquez RN, BSN
CDI Specialist
Available via [place] text
Please use your independent medical judgment in providing your response.
== END 2025-04-21 19:25 | DRG 493 ==
LOC: 2 SOUTH 11:03
PROVIDERS: Hospitalist; Radiology Diagnostic Radiology; ADMITTING PHYSICIAN Student in an Organized Health Care Education/Training Program; ATTENDING PHYSICIAN Internal Medicine; CONSULT PHYSICIAN Internal Medicine Infectious Disease
PROC: 0J9Q0ZZ Drainage of Right Foot Subcutaneous Tissue and Fascia, Open Approach (ICD-10-PCS; 2025-04-16)
PROC: 0SPF05Z Removal of External Fixation Device from Right Ankle Joint, Open Approach (ICD-10-PCS; 2025-04-16)
PROC: 02HV33Z Insertion of Infusion Device into Superior Vena Cava, Percutaneous Approach (ICD-10-PCS; 2025-04-19)
DX: T84.7XXA Infection and inflammatory reaction due to other internal orthopedic prosthetic devices, implants and grafts, initial encounter (principal); D62 Acute posthemorrhagic anemia; L02.611 Cutaneous abscess of right foot; L03.115 Cellulitis of right lower limb; Z68.41 Body mass index [BMI] 40.0-44.9, adult; K59.00 Constipation, unspecified; I10 Essential (primary) hypertension; I25.10 Atherosclerotic heart disease of native coronary artery without angina pectoris; E78.5 Hyperlipidemia, unspecified; K21.9 Gastro-esophageal reflux disease without esophagitis; E11.41 Type 2 diabetes mellitus with diabetic mononeuropathy; E11.610 Type 2 diabetes mellitus with diabetic neuropathic arthropathy; E55.9 Vitamin D deficiency, unspecified; H40.9 Unspecified glaucoma; Z79.4 Long term (current) use of insulin; D51.9 Vitamin B12 deficiency anemia, unspecified; E66.01 Morbid (severe) obesity due to excess calories; G57.91 Unspecified mononeuropathy of right lower limb; Y79.2 Prosthetic and other implants, materials and accessory orthopedic devices associated with adverse incidents
CPT/HCPCS: 71046; 74018; 76000; 80048; 80053; 82962; 83036; 83735; 85014; 85018; 85025; 87070; 87075; 87147; 87186; 87205; 97163; 97167; 97530; 97535